=== PATIENT | female | born 1975 | race Hispanic/Latino ===

== ENCOUNTER 2019-01-05 09:07 | Inpatient (IN) | payer MEDICAID, SELFPAY ==
[2019-01-05 09:39] LABS: Bilirubin Negative (Negative); Blood, Urine Small (Negative); Clarity CLEAR (Clear); Glucose, Urine (Dipstick) >=1000 mg/dL (Negative); Leukocyte Negative (Negative); Nitrite Negative (Negative); Protein, Urine (Dipstick) 100 mg/dL (Neg-Trace); Specific Gravity, Urine 1.032 (1.002-1.036); Urobilinogen 0.2 mg/dL (0.2-1.0); pH, Urine 5.5 (5.0-9.0)
[2019-01-05 09:44] LABS: Pregnancy Test - Urine (BHCG) Negative (Negative); Pregu Control Background? CLEAR/WHITE (CLR/WHITE); Pregu Control Bar Appear? YES (CONTROL BAR); Specific Gravity 1.032 (1.002-1.036)
[2019-01-05 09:45] LABS: Bacteria/HPF None Seen HPF (None Seen); RBC/HPF 0-3 HPF (0-3); Squamous Epithelial 0-3 HPF (0-3); WBC/HPF 0-3 HPF (0-3)
[2019-01-05 09:46] LABS: Pathc Cast-AUWi Flag 2.61 (0-2.49)
[2019-01-05 09:57] LABS: Hyaline Casts/LPF 0-3 HYALINE CAST LPF (0-3 Hyaline)
[2019-01-05] MEDS ORDERED: ISOVUE-370 76%-LOCM 1 ML ONE (10:13)
[2019-01-05 10:44] LABS: Hemoglobin 12.9 g/dL (12.0-16.0); Mean Corpuscular Hemoglobin 27.1 pg (27.0-31.0); Mean Corpuscular Volume 87.1 fL (78.0-98.0); Mean Platelet Volume 9.3 fL (7.4-10.4); Platelet Count 286 thou/uL (130-400); RBC Distribution Width 15.9 % (11.5-14.5); Red Blood Cell (RBC) Count 4.75 mill/uL (4.20-5.40); White Blood Cell (WBC) Count 18.8 thou/uL (4.8-10.8)
[2019-01-05 10:59] LABS: Band 18 % (5-11); Lymphocytes 9 % (21-51); MDiff Complete? YES; Monocytes 6 % (0-10); Neutrophil 67 % (42-75); Platelet Morphology Comment Appears Adequate; Polychromasia SLIGHT = 2-3 cells (100X) (0-2/hpf)
[2019-01-05] MEDS ORDERED: Pantoprazole 40 MG VIAL ONE (11:52)
[2019-01-05] MEDS ORDERED: Sodium Chloride 0.9% 0 ML ONE (11:52)
[2019-01-05] MEDS ORDERED: Metoclopramide HCl 10 MG/2 ML VIAL ONE (11:52)
[2019-01-05] MEDS ORDERED: Dicyclomine 20 MG TAB ONE (11:52)
[2019-01-05 12:09] LABS: Albumin 3.5 g/dL (3.5-5.0)
[2019-01-05 12:10] LABS: Chloride 107 mmol/L (98-107); Potassium 4.6 mmol/L (3.5-5.1); Sodium 129 mmol/L (136-145)
[2019-01-05 12:11] LABS: Calcium 9.1 mg/dL (7.8-10.44); Glucose 352 mg/dL (70-105)
[2019-01-05 12:12] LABS: Globulin 4.8 g/dL (2.4-3.5); Protein, Total 8.3 g/dL (6.0-8.3)
[2019-01-05 12:13] LABS: Bilirubin, Total 0.2 mg/dL (0.2-1.2)
[2019-01-05 12:14] LABS: Alkaline Phosphatase 98 U/L (40-150)
[2019-01-05 12:15] LABS: Calc. Creatinine Clearance 0 mL/min (70-130); Estimated GFR-MDRD 59
[2019-01-05 12:16] LABS: BUN (Urea Nitrogen) 9 mg/dL (7.0-18.7)
[2019-01-05 12:17] LABS: ALT (SGPT) Less than 7 U/L (8-55); AST (SGOT) 7 U/L (5-34)
[2019-01-05 12:18] LABS: Lipase 134 U/L (8-78)
[2019-01-05 12:24] LABS: Carbon Dioxide Less than 8 mmol/L (22-29)
--- NOTE | 2019-01-05 13:22 | CT ---
CT ABDOMEN AND PELVIS: 01/05/2019 HISTORY: Abdominal pain and vomiting. COMPARISON: None. TECHNIQUE: Axial CT imaging at 5 mm intervals, from the lung bases through the pubic symphysis, with IV contrast . Coronal reformatted imaging obtained. FINDINGS: The imaged lung base is unremarkable. No free intraperitoneal air is noted. The liver, gallbladder, and spleen appear unremarkable. The adrenal glands and kidneys are unremarka ble. There is mild stranding of the peripancreatic fat, in the region of the pancreatic head and uncinate process, which is slightly ill- defined. In addition, the horizontal portion of the duodenum demonst rates wall thickening. In this location, inseparable from the pancreatic head and the horizontal por tion of the duodenum, there is inflammatory fat stranding and fluid within the retroperitoneum. Flui d extends inferiorly and to the right of midline, into the anterior pararenal space, on the right. This fluid extends into the right lower quadrant. The appendix is unremarkable. No evidence for bowel obstruction. The vascular structures of the abdomen and pelvis appear unremarkable. Review of the osseous structures demonstrates no worrisome lytic or blastic bone lesion. Degenerative changes are seen at the level of the right sacroiliac joint. IMPRESSION: Inflammatory fat stranding and free fluid noted in the region of the horizontal portion of the duoden um/pancreatic head, extending into the right lower quadrant. These findings may be on the basis of d uodenitis, associated with an infectious or inflammatory process, including peptic ulcer disease. Al ternatively, this could be on the basis of pancreatitis involving the pancreatic head and uncinate pr ocess. Results called to Dr. Olivas at 12:40 p.m. on 01/05/2019. CODE CR POS: [facility]
[2019-01-05] MEDS ORDERED: Insulin Regular 300 UNITS/3 ML VIAL ONE (14:09)
[2019-01-05 14:23] LABS: Magnesium 2.3 mg/dL (1.6-2.6)
[2019-01-05 14:28] LABS: Phosphorus 1.9 mg/dL (2.3-4.7)
[2019-01-05] MEDS ORDERED: Sodium Chloride 0.9% 1,000 ML IV PRN ×4 (15:23)
[2019-01-05] MEDS ORDERED: Guaifenesin DM 100-10/5 ML UDCUP PO PRN (15:23)
[2019-01-05] MEDS ORDERED: Ondansetron PF 4 MG/2 ML Vial IVP PRN (15:23)
[2019-01-05] MEDS ORDERED: Dextrose 5 %-0.45 % NaCl 1,000 ML IV PRN (15:23)
[2019-01-05] MEDS ORDERED: NS 0.9% w/ 20 MEQ KCL 1,000 ML IV PRN ×2 (15:23)
[2019-01-05] MEDS ORDERED: CCU Electrolyte Replacement 1 EACH IVPB ONE (15:23)
[2019-01-05] MEDS ORDERED: HUMULIN R 100 UNITS in Sodium Chloride 0.9% 100 ML IVPB SCH (15:30)
[2019-01-05] MEDS ORDERED: Potassium Phosphate 9 MMOL in Sodium Chloride 0.9% 100 ML IVPB PRN (15:44)
[2019-01-05] MEDS ORDERED: Potassium Phosphate 15 MMOL in Sodium Chloride 0.9% 250 ML 250 ML IV PRN (15:44)
[2019-01-05] MEDS ORDERED: Potassium Chloride 40 MEQ in Premix Bag 1 BAG IVPB PRN (15:44)
[2019-01-05] MEDS ORDERED: Magnesium Oxide 400 MG TAB PO PRN ×2 (15:44)
[2019-01-05] MEDS ORDERED: Potassium Chloride 20 MEQ TAB PO PRN (15:44)
[2019-01-05] MEDS ORDERED: Magnesium 2 GM/NS 0.9% 100 ML 2 GM in Premix Bag 1 BAG IVPB PRN (15:44)
[2019-01-05] MEDS ORDERED: Potassium Chloride 40 MEQ in Sodium Chloride 0.9% 250 ML 250 ML IVPB PRN (15:44)
[2019-01-05] MEDS ORDERED: CCU ELECTROLYTE REPLACEMENT PROTOCOL FS PRN (15:44)
[2019-01-05] MEDS ORDERED: Potassium Phosphate 12 MMOL in Sodium Chloride 0.9% 250 ML 250 ML IV PRN (15:44)
[2019-01-05] MEDS ORDERED: Sodium Chloride 0.9% (PF) 10 ML VIAL FS PRN (15:45)
--- NOTE | 2019-01-05 15:57 | HP ---
REASON FOR ADMISSION: DKA, noncompliance with medication. HISTORY OF PRESENTING ILLNESS: The patient gives history of having severe abdominal pain in the epigastric area, which started from Thursday. She had associated nausea, vomiting, and had not been able to keep anything down. She had a hard stool on Thursday. She has not had any further bowel movements from then on. Currently, her abdominal pain is around 1/10 to 2/10. The patient states that she has diabetes diagnosed from last 2 years and has not been taking any medications from last 4 months now. No complaints of urinary frequency or urgency. No complaints of cough or expectoration. No fever at home. No complaints of vaginal discharge. PAST MEDICAL AND SURGICAL HISTORY: Diabetes from last 2 years. No surgical history. CURRENT MEDICATIONS: None. The patient was on glimepiride and metformin before , but has been off these medications from last 4 months. ALLERGIES: NO KNOWN DRUG ALLERGIES. PERSONAL HISTORY: Does not abuse alcohol or drugs. No history of smoking. FAMILY HISTORY: Mother in a motor vehicle accident at the age of 67 years. Father when she was very young, he was alcoholic. CODE STATUS: Full. Power of assistant city attorney is her , Mr. Sanchez. REVIEW OF SYSTEMS: CONSTITUTIONAL: Negative for weight loss or gain, ability to conduct usual activities. SKIN: Negative for rash, itching. EYES: Negative for double vision, pain. ENT/MOUTH: Negative for nose bleeding, neck stiffness, pain, tenderness. CARDIOVASCULAR: Negative for palpitations, dyspnea on exertion, orthopnea. RESPIRATORY: Negative for shortness of breath, wheezing, cough, hemoptysis, fever or night sweats. GASTROINTESTINAL: Negative for poor appetite, abdominal pain, heartburn, nausea , vomiting, constipation, or diarrhea. GENITOURINARY: Negative for urgency, frequency, dysuria, nocturia. MUSCULOSKELETAL: Negative for pain, swelling. NEUROLOGIC/PSYCHIATRIC: Negative for anxiety, depression. ALLERGY/IMMUNOLOGIC: Negative for skin rash, bleeding tendency. PHYSICAL EXAMINATION: GENERAL: The patient is a 43-year-old female, who is currently not in any acute distress. VITAL SIGNS: Blood pressure 100/66, pulse 110 per minute, respiratory rate 18 per minute, temperature 98.1 degrees Fahrenheit, and saturating 99% on room air. NECK: Supple. No elevated JVD. HEENT: Eyes; extraocular muscles intact, pupils reacting to light. Oral cavity ; mucous membranes are dry. No exudates or congestion. CARDIOVASCULAR: S1 and S2 heard. Regular rhythm. RESPIRATORY: Air entry 1+ bilateral. No rales or rhonchi. ABDOMEN: Soft. Bowel sounds heard. No rigidity or guarding. Mild tenderness in the epigastric area. No rebound. EXTREMITIES: No peripheral edema or calf tenderness. VASCULAR: Peripheral pulses 2+ bilateral. No ischemic ulcerations or gangrene. CENTRAL NERVOUS SYSTEM: No gross focal motor deficits noted. The patient is alert, awake, and oriented well. PSYCHIATRIC: No obvious hallucinations or delusions. LABORATORY DATA: Influenza A and B antigens are negative. CT of the abdomen and pelvis with contrast done showed inflammatory fat stranding and free fluid noted in the region of the horizontal portion of the duodenum/pancreatic head extending into the right lower quadrant. These findings could be due to duodenitis versus pancreatitis. Beta-hydroxybutyrate 6.45. Urine test is negative. Lipase is 134, albumin 4.8. CRP 45. AST, ALT, and alkaline phosphatase within normal limits. Total bilirubin is 0.2. Phosphorus is 1.9. Serum osmolality 311. Serum glucose 352, serum bicarb less than 8, BUN 9, creatinine 1.0. White count of 18 , H and H 12 and 41, platelet count is 286, MCV is 87, with 67% neutrophils and 18% bands. CLINICAL IMPRESSION AND PLAN: The patient will be admitted to [facility] for DKA with diabetes mellitus type 2. She also appears to have either peptic ulcer disease with duodenal ulcer versus mild pancreatitis based on the CAT scan finding and epigastric pain clinically. The patient will be on DKA protocol. She is on 6 units of regular insulin at present and will follow the DKA protocol. Gastroenterology consultation with Dr. Camarillo will be requested for the CAT scan findings and clinical epigastric pain. She will be on Protonix 40 mg IV q.12 hourly. The patient has been noncompliant with her medications from last 4 months for her diabetes. We will continue to closely monitor her in [facility]. Job ID: [id number] [facility]
[2019-01-05 16:27] LABS: BUN (Urea Nitrogen) 8 mg/dL (7.0-18.7); Calc. Creatinine Clearance 0 mL/min (70-130); Calcium 7.8 mg/dL (7.8-10.44); Chloride 114 mmol/L (98-107); Estimated GFR-MDRD 81; Glucose 200 mg/dL (70-105); Potassium 3.9 mmol/L (3.5-5.1); Sodium 134 mmol/L (136-145)
[2019-01-05 16:29] LABS: Carbon Dioxide Less than 8 mmol/L (22-29)
[2019-01-05] MEDS ORDERED: Sodium Bicarb 50 MEQ/50 ML Abboject 8.4% SYRINGE ONE (17:14)
[2019-01-05 18:35] VITALS: BMI 24.8
--- NOTE | 2019-01-05 19:37 | ULT ---
GALLBLADDER ULTRASOUND: 01/05/19 INDICATION: Abdominal pain, upper aspect. FINDINGS: Moderate distention of the gallbladder. No gallbladder wall thickening. There is no shadowing cholel ithiasis. Common duct measures 5 mm in diameter. No ascites. No focal hepatic lesion. IMPRESSION: No acute abnormality of the right upper quadrant evident sonographically. POS: [facility]
[2019-01-05 20:03] LABS: BUN (Urea Nitrogen) 7 mg/dL (7.0-18.7); Calc. Creatinine Clearance 81 mL/min (70-130); Calcium 8.1 mg/dL (7.8-10.44); Chloride 114 mmol/L (98-107); Estimated GFR-MDRD 72; Glucose 275 mg/dL (70-105); Potassium 3.7 mmol/L (3.5-5.1); Sodium 133 mmol/L (136-145)
[2019-01-05 20:04] LABS: Carbon Dioxide Less than 8 mmol/L (22-29)
[2019-01-05] MEDS ORDERED: Pantoprazole 40 MG VIAL IVP SCH (21:00)
[2019-01-05] MEDS: D5 1/2 NS w/20 mEq KCL 1,000 ML IV PRN (22:42)
[2019-01-06 01:23] LABS: Anion Gap 10 mmol/L (10-20); BUN (Urea Nitrogen) 5 mg/dL (7.0-18.7); Calc. Creatinine Clearance 92 mL/min (70-130); Calcium 7.8 mg/dL (7.8-10.44); Carbon Dioxide 11 mmol/L (22-29); Chloride 114 mmol/L (98-107); Estimated GFR-MDRD 84; Glucose 239 mg/dL (70-105); Potassium 3.1 mmol/L (3.5-5.1); Sodium 132 mmol/L (136-145)
--- NOTE | 2019-01-06 01:30 | CON ---
DATE OF CONSULTATION: 01/05/2019 REASON FOR CONSULTATION: Abdominal pain. HISTORY OF PRESENT ILLNESS: Ms. Ayala is a 43-year-old female, who was brought into the ER by her daughters with the above complaint. For the last 4 days, she has had diffuse abdominal pain more so on the upper abdomen that has progressively worsened over the last 2 days. She did have nausea and vomiting. There is no fever or chills. The patient has not had any diarrhea. There is no visible bleeding in the stools. The patient denies having had any previous gastrointestinal issue. She does have history of adult onset diabetes, but has been without medication for the last several months. She was noted to be in DKA by blood tests in the ER. PAST MEDICAL HISTORY: 1. Adult onset diabetes. 2. No medical illness. PAST SURGICAL HISTORY: No previous surgery. MEDICATIONS: At home, none. ALLERGIES: NONE. SOCIAL HISTORY: The patient lives with her . No tobacco or alcohol usage. FAMILY HISTORY: Negative for any known GI problem, liver disease, or GI malignancy. REVIEW OF SYSTEMS: Obtained per the daughter, interpreting. Ten-point review of systems did not show any pertinent positives or negatives. PHYSICAL EXAMINATION: VITAL SIGNS: Temperature is 98.8, blood pressure 108/70, pulse of 90. GENERAL: She is alert, sitting up by bedside in apparent pain, but no distress. HEENT: Shows anicteric sclerae. Oropharynx clear. NECK: Supple. CV: Shows normal S1, S2. Regular rate and rhythm. CHEST: Shows breath sounds. ABDOMEN: Soft. There is no distention. No tympany. She has active bowel sounds. There is [id number] diffuse tenderness. No guarding or rebound. She has active bowel sounds. EXTREMITIES: Shows no edema. LABORATORY DATA: WBC is 18.8, hemoglobin 12.9, and platelet count of 286. Sodium 134, potassium 3.9, chloride 114, CO2 less than 8, glucose 352. Serum osmolality 311, bilirubin 0.2, AST of 7, ALT of less than 7, alkaline phosphatase 98, lipase of 134, beta hydroxybutyrate 6.45. Abdominal pelvic CT with contrast showed fat stranding in the pancreatic head area and duodenum with inflammation of fluid extending down into the right side. Also duodenal wall thickening. Pancreas appears viable. ASSESSMENT: 1. Abdominal pain in the setting of leukocytosis in CT and findings most likely suggestive of pancreatitis. I think duodenitis or duodenal ulcer appears to be much less likely given the CT findings. Pancreatitis could be precipitated by her diabetic ketoacidosis as the patient does not have any alcohol consumption and she is not on any other medication. Cholelithiasis needs to be excluded. 2. Adult onset diabetes without medication for the last several months, now in diabetic ketoacidosis. RECOMMENDATIONS: 1. Treat her diabetic ketoacidosis. 2. Clear liquids if tolerated. 3. No need for antibiotics at the present time. 4. Diagnostic upper endoscopy tomorrow or once her diabetic ketoacidosis resolves to rule out any duodenal pathology. 5. Gallbladder ultrasound. 6. Monitor her labs and clinical status. We will follow. Job ID: [id number] [facility]
[2019-01-06] MEDS: D5 1/2 NS w/20 mEq KCL 1,000 ML IV PRN ×2 (02:48→06:01)
[2019-01-06 06:50] LABS: Anion Gap 12 mmol/L (10-20); BUN (Urea Nitrogen) 4 mg/dL (7.0-18.7); Calc. Creatinine Clearance 115 mL/min (70-130); Calcium 7.6 mg/dL (7.8-10.44); Chloride 114 mmol/L (98-107); Estimated GFR-MDRD Greater than 90; Glucose 211 mg/dL (70-105); Lipase 63 U/L (8-78); Potassium 3.2 mmol/L (3.5-5.1); Sodium 131 mmol/L (136-145)
[2019-01-06 06:53] LABS: Carbon Dioxide 8 mmol/L (22-29)
[2019-01-06 07:10] LABS: #Eosinphils 0.1 thou/uL (0.0-0.7); #Lymphocytes 1.6 thou/uL (1.20-3.40); #Monocytes 0.9 thou/uL (0.11-0.59); #Neutrophils 10.8 thou/uL (1.40-6.50); %Basophils 0.1 % (0.0-1.0); %Eosinophils 0.6 % (0.0-10.0); %Lymphocytes 11.8 % (21.0-51.0); %Monocytes 6.8 % (0.0-10.0); %Neutrophils 80.7 % (42.0-75.0); Hemoglobin 9.7 g/dL (12.0-16.0); Mean Corpuscular HGB CONC 31.8 g/dL (32.0-36.0); Mean Platelet Volume 8.3 fL (7.4-10.4); Platelet Count 215 thou/uL (130-400); RBC Distribution Width 15.6 % (11.5-14.5); White Blood Cell (WBC) Count 13.4 thou/uL (4.8-10.8)
--- NOTE | 2019-01-06 08:37 | RAD ---
ACUTE ABDOMINAL SERIES: Date: 01/06/19 INDICATION: Metabolic acidosis. FINDINGS: Lungs are clear. No free air beneath the hemidiaphragms. Bowel gas pattern is nonobstructed. The osse ous structures are intact. IMPRESSION: 1. Clear lungs. 2. No free air. 3. No bowel obstruction evident. POS: [facility]
[2019-01-06] MEDS: Pantoprazole 40 MG VIAL IVP SCH (09:53)
--- NOTE | 2019-01-06 11:17 | PDOC.PN ---
- Subjective Encounter Start Date: 01/06/19 Encounter Start Time: 08:30 Subjective: no nausea, still has epigastric pain -: at bedside - Objective Resuscitation Status - Order Detail: 01/05/19 15:21 Resuscitation Status Routine Resuscitation Status: FULL: Full Resuscitation MAR Reviewed: Yes Vital Signs & Weight: Vital Signs (12 hours) Temp Pulse Ox 01/06/19 07:16 99.2 F 01/06/19 04:00 98.2 F 01/06/19 00:00 98.9 F 100 Weight Weight 135 lb 12.8 oz Most Recent Monitor Data Heart Rate from ECG 89 NIBP 111/67 NIBP BP-Mean 81 Respiration from ECG 22 I&O: 01/05/19 01/06/19 01/07/19 06:59 06:59 06:59 Intake Total 3350 1000 Output Total 800 1350 Balance 2550 -350 Result Diagrams: 01/06/19 05:32 01/06/19 05:32 Additional Labs: Accuchecks 01/06/19 01/06/19 01/06/19 11:09 10:16 09:04 POC Glucose 158 H 183 H 237 H 01/06/19 01/06/19 01/06/19 08:10 07:06 06:03 POC Glucose 199 H 220 H 207 H 01/06/19 01/06/19 01/06/19 05:01 04:03 03:01 POC Glucose 208 H 214 H 223 H 01/06/19 01/06/19 01/06/19 02:02 00:58 00:01 POC Glucose 237 H 217 H 222 H 01/05/19 01/05/19 01/05/19 23:01 22:05 21:01 POC Glucose 255 H 281 H 275 H 01/05/19 01/05/19 01/05/19 19:58 19:07 18:18 POC Glucose 251 H 213 H 211 H 01/05/19 01/05/19 01/05/19 17:10 16:00 14:07 POC Glucose 188 H 194 H 302 H 01/05/19 09:17 POC Glucose 329 H Phys Exam - Physical Examination HEENT: PERRLA, moist MMs Neck: no JVD, supple Respiratory: no wheezing, no rales Cardiovascular: RRR, no significant murmur Gastrointestinal: soft, no distention, positive bowel sounds epigastric tenderness, no rebound or guarding Musculoskeletal: no edema, pulses present Neurological: non-focal, moves all 4 limbs Psychiatric: normal affect, A&O x 3 Dx/Plan (1) DKA (diabetic ketoacidoses) Code(s): E13.10 - OTH DIABETES MELLITUS WITH KETOACIDOSIS WITHOUT COMA Status : Resolved Qualifiers: Diabetes mellitus type: type 2 Diabetes mellitus complication detail: without coma Qualified Code(s): E11.10 - Type 2 diabetes mellitus with ketoacidosis without coma (2) Metabolic acidosis Code(s): E87.2 - ACIDOSIS Status: Acute Comment: severe (3) Abdominal pain Code(s): R10.9 - UNSPECIFIED ABDOMINAL PAIN Status: Acute Qualifiers: Abdominal location: epigastric Qualified Code(s): R10.13 - Epigastric pain (4) Anemia Code(s): D64.9 - ANEMIA, UNSPECIFIED Status: Acute Qualifiers: Anemia type: unspecified type Qualified Code(s): D64.9 - Anemia, unspecified (5) Nausea & vomiting Code(s): R11.2 - NAUSEA WITH VOMITING, UNSPECIFIED Status: Resolved (6) HTN (hypertension) Code(s): I10 - ESSENTIAL (PRIMARY) HYPERTENSION Status: Chronic Qualifiers: Hypertension type: essential hypertension Qualified Code(s): I10 - Essential (primary) hypertension (7) Dyslipidemia Code(s): E78.5 - HYPERLIPIDEMIA, UNSPECIFIED Status: Chronic - Plan await EGD results -: dka is corrected with betahydroxy levels being normal -: has severe met acidosis likely from pancreatitis?, no perf on plain xray -: keep pt npo until egd and is cleared by GI for eating -: iv hydration, dc iv insulin and start levemir 10u bid * . Review of Systems - Medications/Allergies Allergies/Adverse Reactions: Allergies Allergy/AdvReac Type Severity Reaction Status Date / Time No Known Allergies Allergy Unverified 01/05/19 15:40 Medications: Current Medications Acetaminophen (Tylenol) 650 mg PO Q4H PRN PRN Reason: Headache/Fever/Mild Pain (1-3) Enoxaparin Sodium (Lovenox) 40 mg SC 0900 JUSTO Guaifenesin/Dextromethorphan (Robitussin Dm) 15 ml PO Q4H PRN PRN Reason: Cough Dextrose/Sodium Chloride (D5 1/2 Ns) 1,000 mls @ 250 mls/hr IV .Q4H PRN; Protocol PRN Reason: Step 4 of DKA Protocol Potassium Chloride/Dextrose/Sod Cl (D5 1/2 Ns W/20 Meq Kcl) 1,000 mls @ 250 mls /hr IV .Q4H PRN; Protocol PRN Reason: Step 4 of DKA Protocol Last Admin: 01/06/19 06:01 Dose: 1,000 mls Insulin Human Regular 100 (units/ Sodium Chloride) 101 mls @ 0 mls/hr IVPB INF JUSTO; Protocol Last Admin: 01/06/19 06:01 Dose: 101 mls Sodium Chloride (Normal Saline 0.9%) 1,000 mls @ 500 mls/hr IV .Q2H PRN; Protocol PRN Reason: Step 1 of DKA Protocol Sodium Chloride (Normal Saline 0.9%) 1,000 mls @ 1,000 mls/hr IV .Q1H PRN; Protocol PRN Reason: Step 1 of DKA Protocol Sodium Chloride (Normal Saline 0.9%) 1,000 mls @ 250 mls/hr IV .Q4H PRN; Protocol PRN Reason: SEE STEP 3 OF DKA PROTOCOL Sodium Chloride (Normal Saline 0.9%) 1,000 mls @ 500 mls/hr IV .Q2H PRN; Protocol PRN Reason: Step 2 of DKA Protocol Potassium Chloride/Sodium Chloride (Ns 0.9% W/ 20 Meq Kcl) 1,000 mls @ 500 mls/ hr IV .Q2H PRN; Protocol PRN Reason: Step 2 of DKA Protocol Potassium Chloride/Sodium Chloride (Ns 0.9% W/ 20 Meq Kcl) 1,000 mls @ 250 mls/ hr IV .Q4H PRN; Protocol PRN Reason: SEE STEP 3 OF DKA PROTOCOL Potassium Chloride 40 meq/ (Sodium Chloride) 270 mls @ 135 mls/hr IVPB ASDIR PRN PRN Reason: FOR SERUM K+ 2.5 - 3.5 Potassium Chloride 40 meq/ (Device) 100 mls @ 50 mls/hr IVPB ASDIR PRN PRN Reason: FOR SERUM K+ 2.5 - 3.5 Magnesium Sulfate 1 gm/ Sodium (Chloride) 102 mls @ 102 mls/hr IV PRN PRN PRN Reason: MAG LEVEL 1.4 - 2.0 Magnesium Sulfate 2 gm/ Device 100 mls @ 100 mls/hr IVPB ASDIR PRN PRN Reason: MAGNESIUM < 1.4 Potassium Phosphate 9 mmol/ (Sodium Chloride) 103 mls @ 25.75 mls/hr IVPB ASDIR PRN PRN Reason: Phosphate 1.0-1.8 Potassium Phosphate 12 mmol/ (Sodium Chloride) 254 mls @ 63.5 mls/hr IV ASDIR PRN PRN Reason: Serum phosphate 0.5-0.9 Potassium Phosphate 15 mmol/ (Sodium Chloride) 255 mls @ 63.75 mls/hr IV ASDIR PRN PRN Reason: Serum Phos < 0.5 Magnesium Oxide (Magnesium Oxide) 400 mg PO BIDPRN PRN PRN Reason: FOR SERUM MAG 1.4 - 2.0 Magnesium Oxide (Magnesium Oxide) 800 mg PO PRN PRN PRN Reason: FOR SERUM MAG < 1.4 Miscellaneous Medication (Phos-Nak) 1 pkt PO TIDPRN PRN PRN Reason: FOR PHOS LEVEL 1.0 - 1.8 Miscellaneous Medication (Phos-Nak) 2 pkt PO TIDPRN PRN PRN Reason: FOR PHOS LEVEL 0.5 - 1.0 Ccu Electrolyte (Replacement Protocol) 0 each FS PRN PRN PRN Reason: FOR ELECTROLYTE REPLACEMENT Ondansetron HCl (Zofran) 4 mg IVP Q6H PRN PRN Reason: Nausea/Vomiting Pantoprazole Sodium (Protonix) 40 mg IVP DAILY JUSTO Last Admin: 01/06/19 09:53 Dose: 40 mg Potassium Chloride (K-Dur) 40 meq PO ASDIR PRN PRN Reason: FOR SERUM K+ 2.5 - 3.5 Potassium Chloride (Klor-Con) 40 meq PER TUBE ASDIR PRN PRN Reason: FOR SERUM K+ 2.5-3.5 Sodium Chloride (Normal Saline Pf) 10 ml FS PRN PRN PRN Reason: RECONSTITUTION
[2019-01-06] MEDS: Enoxaparin Sodium 40 MG/0.4 ML SYRINGE SC SCH (14:04)
--- NOTE | 2019-01-06 15:00 | PRG ---
DATE OF SERVICE: 01/06/2019 SUBJECTIVE: The patient reports subjectively feeling better. Her current abdominal pain is rated at 3/10. There is no nausea or vomiting. No acute overnight event noted. PHYSICAL EXAMINATION: VITAL SIGNS: Temperature is 99.4, blood pressure 97/58, pulse of 85. GENERAL: She is alert, quiet, in no distress. HEENT: Shows anicteric sclerae. NECK: Supple. CV: Shows normal S1 and S2. Regular rate and rhythm. CHEST: Shows breath sounds. ABDOMEN: Soft. No distention. Mild epigastric tenderness. No guarding or rebound. She has active bowel sounds. EXTREMITIES: Shows no edema. LABORATORY DATA: WBCs 13.4, hemoglobin 9.7, and platelet count of 215. Sodium 131, potassium 3.2, chloride 114, CO2 of 8, lipase of 63. Right upper quadrant ultrasound was normal, no gallstone. ASSESSMENT: 1. Severe epigastric pain with CT findings suggestive of pancreatitis as the most likely etiology rather than duodenal pathology. Clinically stable and subjectively improving. Her labs are fairly unremarkable. 2. Diabetic ketoacidosis, resolving. RECOMMENDATIONS: 1. Continue clear liquids today. 2. Diagnostic upper endoscopy in a.m. 3. Further recommendation to follow per clinical course and endoscopic finding. Job ID: [id number]
[2019-01-06] MEDS ORDERED: Dextrose 50% Abboject 50 ML SYRINGE SLOW IVP PRN (15:42)
[2019-01-06] MEDS ORDERED: Dextrose 5% in Water 1,000 ML IV PRN (15:42)
[2019-01-06] MEDS ORDERED: CCU Electrolyte Replacement 1 EACH FS ONE (15:43)
[2019-01-06] MEDS ORDERED: CCU ELECTROLYTE REPLACEMENT PROTOCOL FS PRN (15:46)
[2019-01-06] MEDS ORDERED: Magnesium 2 GM/NS 0.9% 100 ML 2 GM in Premix Bag 1 BAG IVPB PRN (15:46)
[2019-01-06] MEDS ORDERED: Potassium Phosphate 9 MMOL in Sodium Chloride 0.9% 100 ML IVPB PRN (15:46)
[2019-01-06] MEDS ORDERED: Potassium Phosphate 15 MMOL in Sodium Chloride 0.9% 250 ML 250 ML IV PRN (15:46)
[2019-01-06] MEDS ORDERED: Potassium Chloride 40 MEQ in Premix Bag 1 BAG IVPB PRN (15:46)
[2019-01-06] MEDS ORDERED: Potassium Chloride 20 MEQ TAB PO PRN (15:46)
[2019-01-06] MEDS ORDERED: Potassium Chloride 40 MEQ in Sodium Chloride 0.9% 250 ML 250 ML IVPB PRN (15:46)
[2019-01-06] MEDS ORDERED: Magnesium Oxide 400 MG TAB PO PRN ×2 (15:46)
[2019-01-06 16:50] LABS: Anion Gap 11 mmol/L (10-20); BUN (Urea Nitrogen) Less than 4 mg/dL (7.0-18.7); Calc. Creatinine Clearance 123 mL/min (70-130); Calcium 7.8 mg/dL (7.8-10.44); Carbon Dioxide 11 mmol/L (22-29); Chloride 115 mmol/L (98-107); Estimated GFR-MDRD Greater than 90; Glucose 160 mg/dL (70-105); Magnesium 1.4 mg/dL (1.6-2.6); Phosphorus Less than 1.0 mg/dL (2.3-4.7); Potassium 2.8 mmol/L (3.5-5.1); Sodium 134 mmol/L (136-145)
[2019-01-06] MEDS ORDERED: Magnesium 2 GM/50 ML 2 GM in Premix Bag 1 BAG IVPB SCH (17:15)
[2019-01-06] MEDS: Potassium Phosphate 12 MMOL in Sodium Chloride 0.9% 250 ML 250 ML IV PRN (17:23)
[2019-01-06] MEDS: Insulin Glargine 12 UNITS in Pre-Filled Syringe 1 EACH SC SCH (20:46)
[2019-01-06] MEDS: HumaLOG 300 UNITS/3 ML VIAL SC PRN (20:47)
[2019-01-07] MEDS: Potassium Phosphate 12 MMOL in Sodium Chloride 0.9% 250 ML 250 ML IV PRN (01:06)
[2019-01-07 05:17] LABS: Anion Gap 11 mmol/L (10-20); BUN (Urea Nitrogen) 4 mg/dL (7.0-18.7); Calc. Creatinine Clearance 117 mL/min (70-130); Carbon Dioxide 14 mmol/L (22-29); Chloride 112 mmol/L (98-107); Estimated GFR-MDRD Greater than 90; Glucose 253 mg/dL (70-105); Sodium 133 mmol/L (136-145)
[2019-01-07] MEDS: HumaLOG 300 UNITS/3 ML VIAL SC PRN ×4 (06:19→21:19)
[2019-01-07] MEDS: Insulin Glargine 12 UNITS in Pre-Filled Syringe 1 EACH SC SCH ×2 (08:24→21:17)
[2019-01-07] MEDS: Pantoprazole 40 MG VIAL IVP SCH (08:25)
[2019-01-07] MEDS: Enoxaparin Sodium 40 MG/0.4 ML SYRINGE SC SCH (10:01)
--- NOTE | 2019-01-07 15:13 | PRG ---
DATE OF SERVICE: 01/07/2019 SUBJECTIVE: The patient reports the pain is about the same as yesterday, but overall better since admission, currently 3/10. She has no nausea or vomiting. She was able to ambulate in the hallway. No other reported symptoms. PHYSICAL EXAMINATION: VITAL SIGNS: Temperature is 98.2, blood pressure 107/59, pulse of 83. GENERAL: She is alert, quiet, in no distress. HEENT: Shows anicteric sclerae. NECK: Supple. CV: Shows normal S1, S2. Regular rate and rhythm. CHEST: Shows breath sounds. ABDOMEN: Shows [id number] tenderness in the medial right upper quadrant, down the right quadrant and right abdomen. No guarding or rebound. She has active bowel sounds. No distention. No tympany. EXTREMITIES: Show no edema. LABORATORY DATA: Sodium 133, potassium 4.0, chloride 112, CO2 of 14, creatinine 0.59. ASSESSMENT: 1. Severe epigastric pain on admission with CT findings suggestive of pancreatitis as the most likely etiology. Her acidosis is improving. The patient clinically does not look toxic. She is without fever and leukocytosis is also improving. 2. Diabetic ketoacidosis, resolved. RECOMMENDATIONS: 1. Continue with clear liquids. 2. We will defer diagnostic upper endoscopy to a.m. 3. if EGD is negative and she continues to have pain, then we will repeat CT scan to assess for any interval pain. 4. Dr. Berrios will cover for GI Services this weekend. Job ID: [id number] [facility]
--- NOTE | 2019-01-07 15:25 | PDOC.PN ---
- Subjective Encounter Start Date: 01/07/19 Encounter Start Time: 13:00 Subjective: abd pain is better but still present -: is tolerating oral diet, no nausea - Objective Resuscitation Status - Order Detail: 01/05/19 15:21 Resuscitation Status Routine Resuscitation Status: FULL: Full Resuscitation MAR Reviewed: Yes Vital Signs & Weight: Vital Signs (12 hours) Temp Pulse Ox 01/07/19 12:00 98.2 F 01/07/19 08:00 98.8 F 100 01/07/19 03:44 98.7 F Weight Weight 135 lb 12.8 oz Most Recent Monitor Data Heart Rate from ECG 83 NIBP 107/59 NIBP BP-Mean 75 Respiration from ECG 16 I&O: 01/06/19 01/07/19 01/08/19 06:59 06:59 06:59 Intake Total 3350 3400 Output Total 800 5100 Balance 2550 -1700 Result Diagrams: 01/06/19 05:32 01/07/19 04:46 Additional Labs: Accuchecks 01/07/19 01/07/19 10:16 05:58 POC Glucose 183 H 250 H Phys Exam - Physical Examination HEENT: PERRLA, moist MMs Neck: no JVD, supple Respiratory: no wheezing, no rales Cardiovascular: RRR, no significant murmur Gastrointestinal: soft, no distention, positive bowel sounds no rigidity or guarding Musculoskeletal: no edema, pulses present Neurological: non-focal, moves all 4 limbs Psychiatric: normal affect, A&O x 3 Dx/Plan (1) DKA (diabetic ketoacidoses) Code(s): E13.10 - OTH DIABETES MELLITUS WITH KETOACIDOSIS WITHOUT COMA Status : Resolved Qualifiers: Diabetes mellitus type: type 2 Diabetes mellitus complication detail: without coma Qualified Code(s): E11.10 - Type 2 diabetes mellitus with ketoacidosis without coma (2) Metabolic acidosis Code(s): E87.2 - ACIDOSIS Status: Acute Comment: severe (3) Abdominal pain Code(s): R10.9 - UNSPECIFIED ABDOMINAL PAIN Status: Acute Qualifiers: Abdominal location: epigastric Qualified Code(s): R10.13 - Epigastric pain (4) Anemia Code(s): D64.9 - ANEMIA, UNSPECIFIED Status: Acute Qualifiers: Anemia type: unspecified type Qualified Code(s): D64.9 - Anemia, unspecified (5) Nausea & vomiting Code(s): R11.2 - NAUSEA WITH VOMITING, UNSPECIFIED Status: Resolved (6) HTN (hypertension) Code(s): I10 - ESSENTIAL (PRIMARY) HYPERTENSION Status: Chronic Qualifiers: Hypertension type: essential hypertension Qualified Code(s): I10 - Essential (primary) hypertension (7) Dyslipidemia Code(s): E78.5 - HYPERLIPIDEMIA, UNSPECIFIED Status: Chronic - Plan suspected pancreatitis, electrolytes and acidosis is slowly getting better -: continue iv hydration at 100mls/hr, bmp this evening -: egd in am, lantus 12 u bid -: march tx to medical floor -: d/w and patient at bedside * . Review of Systems - Medications/Allergies Allergies/Adverse Reactions: Allergies Allergy/AdvReac Type Severity Reaction Status Date / Time No Known Allergies Allergy Unverified 01/05/19 15:40 Medications: Current Medications Acetaminophen (Tylenol) 650 mg PO Q4H PRN PRN Reason: Headache/Fever/Mild Pain (1-3) Dextrose/Water (Dextrose 50%) 25 gm SLOW IVP PRN PRN PRN Reason: Hypoglycemia Enoxaparin Sodium (Lovenox) 40 mg SC 0900 [facility] Last Admin: 01/07/19 10:01 Dose: Not Given Glucagon (Glucagon) 1 mg IM PRN PRN PRN Reason: Hypoglycemia Guaifenesin/Dextromethorphan (Robitussin Dm) 15 ml PO Q4H PRN PRN Reason: Cough Dextrose/Water (D5w) 1,000 mls @ 0 mls/hr IV .Q0M PRN PRN Reason: Hypoglycemia Insulin Glargine 12 units/ (Miscellaneous Medication) 0.12 mls @ 0 mls/hr SC BID [facility] Last Admin: 01/07/19 08:24 Dose: 0.12 mls Potassium Chloride 40 meq/ (Sodium Chloride) 270 mls @ 135 mls/hr IVPB ASDIR PRN PRN Reason: FOR SERUM K+ 2.5 - 3.5 Potassium Chloride 40 meq/ (Device) 100 mls @ 50 mls/hr IVPB ASDIR PRN PRN Reason: FOR SERUM K+ 2.5 - 3.5 Magnesium Sulfate 1 gm/ Sodium (Chloride) 102 mls @ 102 mls/hr IV PRN PRN PRN Reason: MAG LEVEL 1.4 - 2.0 Potassium Phosphate 9 mmol/ (Sodium Chloride) 103 mls @ 25.75 mls/hr IVPB ASDIR PRN PRN Reason: Phosphate 1.0-1.8 Potassium Phosphate 12 mmol/ (Sodium Chloride) 254 mls @ 63.5 mls/hr IV ASDIR PRN PRN Reason: Serum phosphate 0.5-0.9 Last Admin: 01/07/19 01:06 Dose: 254 mls Potassium Phosphate 15 mmol/ (Sodium Chloride) 255 mls @ 63.75 mls/hr IV ASDIR PRN PRN Reason: Serum Phos < 0.5 Magnesium Sulfate 2 gm/ Device 50 mls @ 50 mls/hr IVPB ASDIR [facility] Last Admin: 01/06/19 17:16 Dose: 50 mls Insulin Human Lispro (Humalog) 0 units SC .MODERATE SLIDING SC PRN PRN Reason: Moderate Correctional Scale Last Admin: 01/07/19 10:23 Dose: 2 unit Insulin Human Lispro (Humalog) 0 units SC .BEDTIME SLIDING SC PRN PRN Reason: Bedtime Correctional Scale Last Admin: 01/06/19 20:47 Dose: 3 unit Magnesium Oxide (Magnesium Oxide) 400 mg PO BIDPRN PRN PRN Reason: FOR SERUM MAG 1.4 - 2.0 Magnesium Oxide (Magnesium Oxide) 800 mg PO PRN PRN PRN Reason: FOR SERUM MAG < 1.4 Miscellaneous Medication (Phos-Nak) 1 pkt PO TIDPRN PRN PRN Reason: FOR PHOS LEVEL 1.0 - 1.8 Miscellaneous Medication (Phos-Nak) 2 pkt PO TIDPRN PRN PRN Reason: FOR PHOS LEVEL 0.5 - 1.0 Ccu Electrolyte (Replacement Protocol) 0 each FS PRN PRN PRN Reason: FOR ELECTROLYTE REPLACEMENT Ccu Electrolyte (Replacement Protocol) 0 each FS PRN PRN PRN Reason: FOR ELECTROLYTE REPLACEMENT Ondansetron HCl (Zofran) 4 mg IVP Q6H PRN PRN Reason: Nausea/Vomiting Pantoprazole Sodium (Protonix) 40 mg IVP DAILY [facility] Last Admin: 01/07/19 08:25 Dose: 40 mg Potassium Chloride (K-Dur) 40 meq PO ASDIR PRN PRN Reason: FOR SERUM K+ 2.5 - 3.5 Potassium Chloride (Klor-Con) 40 meq PER TUBE ASDIR PRN PRN Reason: FOR SERUM K+ 2.5-3.5
[2019-01-07] MEDS: Sodium Chloride 0.9% 1,000 ML IV SCH (16:13)
[2019-01-07 16:27] LABS: Anion Gap 15 mmol/L (10-20); BUN (Urea Nitrogen) 6 mg/dL (7.0-18.7); Calc. Creatinine Clearance 106 mL/min (70-130); Calcium 8.3 mg/dL (7.8-10.44); Carbon Dioxide 14 mmol/L (22-29); Chloride 109 mmol/L (98-107); Estimated GFR-MDRD Greater than 90; Glucose 238 mg/dL (70-105); Magnesium 1.8 mg/dL (1.6-2.6); Potassium 3.4 mmol/L (3.5-5.1); Sodium 135 mmol/L (136-145)
[2019-01-07 16:36] LABS: Phosphorus 2.2 mg/dL (2.3-4.7)
[2019-01-07] MEDS ORDERED: Potassium Chloride 20 MEQ TAB PO SCH (20:45)
[2019-01-08] MEDS: Sodium Chloride 0.9% 1,000 ML IV SCH (02:01)
[2019-01-08 04:47] LABS: #Basophils 0.1 thou/uL (0.0-0.2); #Eosinphils 0.1 thou/uL (0.0-0.7); #Lymphocytes 2.2 thou/uL (1.20-3.40); #Monocytes 0.8 thou/uL (0.11-0.59); #Neutrophils 6.1 thou/uL (1.40-6.50); %Basophils 0.7 % (0.0-1.0); %Eosinophils 0.6 % (0.0-10.0); %Lymphocytes 23.9 % (21.0-51.0); %Monocytes 9.1 % (0.0-10.0); %Neutrophils 65.6 % (42.0-75.0); Mean Corpuscular HGB CONC 32.8 g/dL (32.0-36.0); Mean Corpuscular Hemoglobin 27.2 pg (27.0-31.0); Mean Platelet Volume 7.9 fL (7.4-10.4); Platelet Count 225 thou/uL (130-400); RBC Distribution Width 15.4 % (11.5-14.5); Red Blood Cell (RBC) Count 3.67 mill/uL (4.20-5.40); White Blood Cell (WBC) Count 9.3 thou/uL (4.8-10.8)
[2019-01-08 05:09] LABS: Anion Gap 11 mmol/L (10-20); BUN (Urea Nitrogen) 5 mg/dL (7.0-18.7); Calc. Creatinine Clearance 123 mL/min (70-130); Calcium 7.9 mg/dL (7.8-10.44); Carbon Dioxide 15 mmol/L (22-29); Chloride 110 mmol/L (98-107); Estimated GFR-MDRD Greater than 90; Glucose 194 mg/dL (70-105); Lipase 60 U/L (8-78); Potassium 3.7 mmol/L (3.5-5.1); Sodium 132 mmol/L (136-145)
[2019-01-08] MEDS: Pantoprazole 40 MG VIAL IVP SCH (09:02)
[2019-01-08] MEDS ORDERED: Sodium Bicarbonate 150 MEQ in Dextrose 5% in Water 1,000 ML IV SCH (09:30)
[2019-01-08] MEDS: Enoxaparin Sodium 40 MG/0.4 ML SYRINGE SC SCH (10:01)
[2019-01-08] MEDS: Potassium Chloride 20 MEQ TAB PO SCH ×2 (10:01→17:00)
[2019-01-08] MEDS: Magnesium Oxide 400 MG TAB PO SCH (10:01)
[2019-01-08] MEDS: Insulin Glargine 12 UNITS in Pre-Filled Syringe 1 EACH SC SCH ×2 (10:02→20:42)
[2019-01-08 10:21] LABS: Actual Bicarbonate (HCO3a) 14.5 mEq/L (22-28); Base Excess (BEa) -8.4 mEq/L (-2.0 to +3.0); Calcium, Ionized 1.14 mmol/L (1.12-1.30); Carboxyhemoglobin (COHb) 0.1 gm% (0.0-3.0); Hemoglobin (Hb) 10.6 g/dL (12.0-16.0); O2 Tension (PaO2) 106.3 mmHg (80.0-100.0); Potassium - ABG Lab 3.67 mmol/L (3.70-5.30); pH, Arterial 7.42 (7.35-7.45)
[2019-01-08 10:23] LABS: ALV-art Gradient 14.805 (0-20); CO2 Tension 22.9 mmHg (35.0-45.0); Puncture Site RR
--- NOTE | 2019-01-08 11:38 | CON ---
DATE OF CONSULTATION: 01/08/2019 CONSULTING PHYSICIAN: Dr. Jenkins. REASON FOR CONSULTATION: Acidosis. REASON FOR ADMISSION: Severe abdominal pain, nausea, and vomiting. HISTORY OF PRESENT ILLNESS: This is a 43-year-old female with a history of type 2 diabetes, who came to the hospital with above complaints and was found to have severe acidosis with bicarb level less than 8, and she was started on IV fluids, now with much improvement. Nephrology consult to rule out any renal cause of acidosis. The patient denies any symptoms. She had 2 episodes of diarrhea in the hospital. Her nausea is better. PAST MEDICAL HISTORY: Positive for diabetes. PAST SURGICAL HISTORY: None. HOME MEDICATIONS: 1. Glimepiride. 2. Metformin. ALLERGIES: NO KNOWN DRUG ALLERGIES. SOCIAL HISTORY: No smoking, alcohol, or illicit drug abuse. FAMILY HISTORY: No history of any kidney disease. REVIEW OF SYSTEMS: CONSTITUTIONAL: Negative for weight loss or gain, ability to conduct usual activities. SKIN: Negative for rash, itching. EYES: Negative for double vision, pain. ENT/MOUTH: Negative for nose bleeding, neck stiffness, pain, tenderness. CARDIOVASCULAR: Negative for palpitations, dyspnea on exertion, orthopnea. RESPIRATORY: Negative for shortness of breath, wheezing, cough, hemoptysis, fever or night sweats. GASTROINTESTINAL: Negative for poor appetite, abdominal pain, heartburn, nausea, vomiting, constipation, or diarrhea. GENITOURINARY: Negative for urgency, frequency, dysuria, nocturia. MUSCULOSKELETAL: Negative for pain, swelling. NEUROLOGIC/PSYCHIATRIC: Negative for anxiety, depression. ALLERGY/IMMUNOLOGIC: Negative for skin rash, bleeding tendency. PHYSICAL EXAMINATION: GENERAL: This is a well-built female, in no apparent distress. VITAL SIGNS: Temperature 98.4. Heart rate 80. Respiratory rate 16. Blood pressure 101/65. HEENT: Atraumatic and normocephalic. Oral mucosa is moist. NECK: Supple. CVS: S1 and S2 heard. Regular rate and rhythm. RESPIRATORY: Clear. MUSCULOSKELETAL: 1+ edema. DERMATOLOGIC: No skin rash. NEUROLOGIC: Alert and awake. PSYCHIATRIC: Normal mood and affect. LABORATORY DATA: Hemoglobin is 10.0. Potassium is 3.7, BUN is 5, creatinine is 0.5. ASSESSMENT AND PLAN: 1. Metabolic acidosis. We will check ABG. We will also check urine anion gap, rule out renal cause. Most likely non-renal cause from the pancreas. 2. Hyponatremia. 3. Hyperchloremia. 4. Hyperglycemia with type 2 diabetes. 5. Nausea and vomiting, better. 6. Edema, controlled. 7. Hypertension, stable. Plan is to check ABG and urine anion gap. We will start her on bicarb drip. We will stop normal saline, and we will continue to monitor. Thank you for the consult. Job ID: [id number]
--- NOTE | 2019-01-08 13:10 | PDOC.PN ---
- Subjective Encounter Start Date: 01/08/19 Encounter Start Time: 07:45 Subjective: no sob or nausea -: abd pain is better -: had bm last night - Objective Resuscitation Status - Order Detail: 01/05/19 15:21 Resuscitation Status Routine Resuscitation Status: FULL: Full Resuscitation MAR Reviewed: Yes Vital Signs & Weight: Vital Signs (12 hours) Temp Pulse Resp BP Pulse Ox 01/08/19 11:34 98.6 F 76 16 96/60 99 01/08/19 08:00 99 01/08/19 07:47 98.4 F 80 16 101/65 99 01/08/19 04:00 98.6 F 85 14 105/68 98 Weight Weight 135 lb 12.8 oz Most Recent Monitor Data Heart Rate from ECG 98 NIBP 106/77 NIBP BP-Mean 86 Respiration from ECG 22 I&O: 01/07/19 01/08/19 01/09/19 06:59 06:59 06:59 Intake Total 3400 319 Output Total 5100 1300 Balance -1700 -981 Result Diagrams: 01/08/19 04:26 01/08/19 04:26 Additional Labs: Accuchecks 01/08/19 01/07/19 01/07/19 11:37 20:44 16:05 POC Glucose 279 H 312 H 227 H Phys Exam - Physical Examination HEENT: PERRLA, moist MMs Neck: no JVD, supple Respiratory: no wheezing, no rales Cardiovascular: RRR, no significant murmur Gastrointestinal: soft, no distention, positive bowel sounds Musculoskeletal: no edema, pulses present Neurological: non-focal, moves all 4 limbs Psychiatric: normal affect, A&O x 3 Dx/Plan (1) Metabolic acidosis Code(s): E87.2 - ACIDOSIS Status: Acute Comment: severe (2) DKA (diabetic ketoacidoses) Code(s): E13.10 - OTH DIABETES MELLITUS WITH KETOACIDOSIS WITHOUT COMA Status : Resolved Qualifiers: Diabetes mellitus type: type 2 Diabetes mellitus complication detail: without coma Qualified Code(s): E11.10 - Type 2 diabetes mellitus with ketoacidosis without coma (3) Abdominal pain Code(s): R10.9 - UNSPECIFIED ABDOMINAL PAIN Status: Acute Qualifiers: Abdominal location: epigastric Qualified Code(s): R10.13 - Epigastric pain (4) Anemia Code(s): D64.9 - ANEMIA, UNSPECIFIED Status: Acute Qualifiers: Anemia type: unspecified type Qualified Code(s): D64.9 - Anemia, unspecified (5) Nausea & vomiting Code(s): R11.2 - NAUSEA WITH VOMITING, UNSPECIFIED Status: Resolved (6) HTN (hypertension) Code(s): I10 - ESSENTIAL (PRIMARY) HYPERTENSION Status: Chronic Qualifiers: Hypertension type: essential hypertension Qualified Code(s): I10 - Essential (primary) hypertension (7) Dyslipidemia Code(s): E78.5 - HYPERLIPIDEMIA, UNSPECIFIED Status: Chronic - Plan d/w reg persistent met acidosis -: egd per gi advice -: abd pain is getting better but still there -: is on protonix, lantus -: tolerating oral diet, urine electrolytes * . Review of Systems - Medications/Allergies Allergies/Adverse Reactions: Allergies Allergy/AdvReac Type Severity Reaction Status Date / Time No Known Allergies Allergy Unverified 01/05/19 15:40 Medications: Current Medications Acetaminophen (Tylenol) 650 mg PO Q4H PRN PRN Reason: Headache/Fever/Mild Pain (1-3) Dextrose/Water (Dextrose 50%) 25 gm SLOW IVP PRN PRN PRN Reason: Hypoglycemia Enoxaparin Sodium (Lovenox) 40 mg SC 0900 [facility] Last Admin: 01/08/19 10:01 Dose: 40 mg Glucagon (Glucagon) 1 mg IM PRN PRN PRN Reason: Hypoglycemia Guaifenesin/Dextromethorphan (Robitussin Dm) 15 ml PO Q4H PRN PRN Reason: Cough Dextrose/Water (D5w) 1,000 mls @ 0 mls/hr IV .Q0M PRN PRN Reason: Hypoglycemia Insulin Glargine 12 units/ (Miscellaneous Medication) 0.12 mls @ 0 mls/hr SC BID [facility] Last Admin: 01/08/19 10:02 Dose: 0.12 mls Sodium Bicarbonate 150 meq/ (Dextrose/Water) 1,150 mls @ 100 mls/hr IV NOW [facility] Stop: 01/08/19 20:59 Last Admin: 01/08/19 09:59 Dose: 1,150 mls Insulin Human Lispro (Humalog) 0 units SC .MODERATE SLIDING SC PRN PRN Reason: Moderate Correctional Scale Last Admin: 01/07/19 16:12 Dose: 4 unit Insulin Human Lispro (Humalog) 0 units SC .BEDTIME SLIDING SC PRN PRN Reason: Bedtime Correctional Scale Last Admin: 01/07/19 21:19 Dose: 4 unit Magnesium Oxide (Magnesium Oxide) 400 mg PO DAILY [facility] Last Admin: 01/08/19 10:01 Dose: 400 mg Miscellaneous Medication (Phos-Nak) 1 pkt PO BID [facility] Stop: 01/10/19 09:01 Last Admin: 01/08/19 10:01 Dose: 1 pkt Ondansetron HCl (Zofran) 4 mg IVP Q6H PRN PRN Reason: Nausea/Vomiting Pantoprazole Sodium (Protonix) 40 mg IVP DAILY [facility] Last Admin: 01/08/19 09:02 Dose: 40 mg Potassium Chloride (K-Dur) 40 meq PO BID-[facility] Last Admin: 01/08/19 10:01 Dose: 40 meq Sodium Chloride (Flush - Normal Saline) 10 ml IVF Q12HR [facility] Last Admin: 01/08/19 09:03 Dose: Not Given Sodium Chloride (Flush - Normal Saline) 10 ml IVF PRN PRN PRN Reason: Saline Flush
[2019-01-08] MEDS: HumaLOG 300 UNITS/3 ML VIAL SC PRN ×2 (13:15→18:23)
[2019-01-08 13:46] LABS: Bilirubin Negative (Negative); Blood, Urine Negative (Negative); Clarity CLEAR (Clear); Glucose, Urine (Dipstick) >=1000 mg/dL (Negative); Leukocyte Negative (Negative); Nitrite Negative (Negative); Protein, Urine (Dipstick) Trace mg/dL (Neg-Trace); Specific Gravity, Urine 1.026 (1.002-1.036); pH, Urine 6.5 (5.0-9.0)
--- NOTE | 2019-01-08 20:32 | EKG ---
Test Reason : Blood Pressure : / mmHG Vent. Rate : 094 BPM Atrial Rate : 094 BPM P-R Int : 134 ms QRS Dur : 076 ms QT Int : 394 ms P-R-T Axes : 056 063 050 degrees QTc Int : 492 ms Normal sinus rhythm Prolonged QT Abnormal ECG Confirmed by KEITH PEREZ [id number]), market editor LB MAHONEY ([id number] on 01/08/2019 8:31:29 PM Referred By: Confirmed By:KEITH PEREZ
[2019-01-08] MEDS: Acetaminophen 325 MG TAB PO PRN (20:48)
--- NOTE | 2019-01-08 23:02 | PRG ---
DATE OF SERVICE: 01/08/2019 SUBJECTIVE: The patient was planned for upper endoscopy earlier this morning given improvement of her clinical status; however, she continued to have significant acidosis as noted on labs with a bicarbonate level of 15. Today, she also continues to have increased midepigastric abdominal pain that has improved slightly from previous, but is still severe, resulting in mild nausea but no vomiting. She has been able to ambulate through the hallway without difficulty. Currently, she denies any fevers, chills, GI bleeding, diarrhea, or constipation. PHYSICAL EXAMINATION: VITAL SIGNS: Temperature 98.4, pulse 81, blood pressure 106/63, respiratory rate 16, saturating 97% on room air. GENERAL: The patient was sitting at bedside, in no acute distress. Alert and oriented x4. CARDIOVASCULAR: Regular rate and rhythm. RESPIRATORY: Clear to auscultation bilaterally. ABDOMEN: Normoactive bowel sounds. Soft, nondistended. Tenderness to palpation in the midepigastric and right upper quadrant. EXTREMITIES: No cyanosis, clubbing, or edema. LABORATORY DATA: CBC with a white blood cell count of 9.3, hemoglobin 10, hematocrit 30.4, platelets 225. Chemistry with a sodium of 132, potassium 3.7, chloride 110, CO2 of 15, BUN 5, creatinine 0.56, glucose 194. IMAGING DATA: No current GI imaging is available for review. ASSESSMENT: 1. Severe epigastric pain with CT findings suggestive of pancreatitis versus duodenitis. 2. Diabetic ketoacidosis, resolving but with continued acidosis on labs. RECOMMENDATIONS: 1. Would continue clear liquids today with n.p.o. at midnight in anticipation for upper endoscopy tomorrow. 2. If upper endoscopy is negative and she is still having continued pain, then I would recommend a repeat CT scan to assess for interval progression of possible pancreatitis. 3. We will continue to follow. Please call with any questions. Job ID: [id number]
[2019-01-08 23:53] LABS: Anion Gap 12 mmol/L (10-20); BUN (Urea Nitrogen) Less than 4 mg/dL (7.0-18.7); Calc. Creatinine Clearance 128 mL/min (70-130); Carbon Dioxide 21 mmol/L (22-29); Chloride 105 mmol/L (98-107); Estimated GFR-MDRD Greater than 90; Glucose 182 mg/dL (70-105); Potassium 3.4 mmol/L (3.5-5.1); Sodium 135 mmol/L (136-145)
[2019-01-09] MEDS ORDERED: Sodium Chloride 0.45% 1,000 ML IV SCH (00:15)
[2019-01-09] MEDS: Pantoprazole 40 MG VIAL IVP SCH (09:27)
[2019-01-09] MEDS: Magnesium Oxide 400 MG TAB PO SCH (09:27)
[2019-01-09] MEDS: Potassium Chloride 20 MEQ TAB PO SCH ×2 (09:27→17:19)
[2019-01-09] MEDS: Enoxaparin Sodium 40 MG/0.4 ML SYRINGE SC SCH (09:28)
[2019-01-09] MEDS: Insulin Glargine 12 UNITS in Pre-Filled Syringe 1 EACH SC SCH (09:39)
--- NOTE | 2019-01-09 09:54 | OP ---
DATE OF PROCEDURE: 01/09/2019 PROCEDURE PERFORMED: Esophagogastroduodenoscopy with biopsy. INDICATIONS FOR PROCEDURE: Midepigastric abdominal pain, abnormal GI imaging with thickening of the stomach and proximal small bowel. DESCRIPTION OF PROCEDURE: After the risks and benefits of the procedure were explained to the patient including risks of bleeding, infection, perforation, reactions to anesthesia, aspiration, and/or pain, informed consent was obtained. The patient was then taken to the endoscopy suite, where deep sedation was administered via propofol and anesthesia support. Once adequate sedation was achieved, the standard gastroscope was introduced into the mouth with intubation of the esophagus, stomach, and the proximal small intestine with the findings listed below. The patient tolerated the procedure well with no immediate perioperative complications. Upon completion of the procedure, all equipment was removed from the patient and she was transferred to PACU in satisfactory condition. FINDINGS: Esophagus: Normal-appearing mucosa was seen in the proximal, mid, and distal esophagus. There was no evidence of erosions, ulcerations, mass lesions, or active/recent bleeding. Both the diaphragmatic pinch and GE junction were well seen at approximately 38 cm past the incisors. Stomach: Moderately severe diffuse mucosal erythema was seen throughout the entire stomach including the cardia, fundus, body, greater curvature, antrum, and incisura. However, there were no associated erosions, ulcerations, mass lesions, or active/recent bleeding. Random biopsies were taken from the antrum, incisura and body for evaluation of H pylori status. Mild lightening/whitening of the antral mucosa was seen at the pylorus, which could be due to intestinal metaplasia. This was biopsied along with random gastric biopsies. Duodenum: Normal-appearing mucosa was seen in both the duodenal bulb and second portion of the duodenum. There was no evidence of erosions, ulcerations, mass lesions, or active/recent bleeding. IMPRESSION: 1. Moderately severe diffuse mucosal erythema seen in the stomach consistent with moderate gastritis with unknown etiology, status post biopsies. 2. Otherwise normal upper endoscopy. RECOMMENDATIONS: 1. We will follow up on the biopsy results with further management based on the results. 2. We will continue the patient on PPI daily, but increased to b.i.d. dosing given the moderately severe gastritis. 3. Would advance the patient's diet to a full liquid diet and advance as tolerated thereafter. We will continue to follow. Please call with any questions. Job ID: [id number]
--- NOTE | 2019-01-09 10:19 | PDOC.PN ---
- Subjective Encounter Start Date: 01/09/19 Encounter Start Time: 07:00 Subjective: abd pain+, no nausea or vomiting -: is tolerating liq diet - Objective Resuscitation Status - Order Detail: 01/05/19 15:21 Resuscitation Status Routine Resuscitation Status: FULL: Full Resuscitation MAR Reviewed: Yes Vital Signs & Weight: Vital Signs (12 hours) Temp Pulse Resp BP BP Pulse Ox 01/09/19 09:43 98.4 F 84 16 98/65 99 01/09/19 08:00 99 01/09/19 07:36 98.4 F 84 14 100/67 99 01/09/19 04:00 98.5 F 95 16 103/60 98 Weight Weight 135 lb 12.8 oz Most Recent Monitor Data Heart Rate from ECG 98 NIBP 106/77 NIBP BP-Mean 86 Respiration from ECG 22 I&O: 01/08/19 01/09/19 01/10/19 06:59 06:59 06:59 Intake Total 319 3100 Output Total 1300 Balance -981 3100 Result Diagrams: 01/08/19 04:26 01/08/19 23:23 Additional Labs: Accuchecks 01/09/19 01/08/19 01/08/19 04:57 20:08 16:40 POC Glucose 234 H 229 H 204 H 01/08/19 01/08/19 11:37 04:59 POC Glucose 279 H 195 H Phys Exam - Physical Examination HEENT: PERRLA, moist MMs Neck: no JVD, supple Respiratory: no wheezing, no rales Cardiovascular: RRR, no significant murmur Gastrointestinal: soft, no distention, positive bowel sounds no rigidity or guarding Musculoskeletal: no edema, pulses present Neurological: non-focal, moves all 4 limbs Psychiatric: normal affect, A&O x 3 Dx/Plan (1) Metabolic acidosis Code(s): E87.2 - ACIDOSIS Status: Acute Comment: resolving (2) DKA (diabetic ketoacidoses) Code(s): E13.10 - OTH DIABETES MELLITUS WITH KETOACIDOSIS WITHOUT COMA Status : Resolved Qualifiers: Diabetes mellitus type: type 2 Diabetes mellitus complication detail: without coma Qualified Code(s): E11.10 - Type 2 diabetes mellitus with ketoacidosis without coma (3) Abdominal pain Code(s): R10.9 - UNSPECIFIED ABDOMINAL PAIN Status: Acute Qualifiers: Abdominal location: epigastric Qualified Code(s): R10.13 - Epigastric pain (4) Anemia Code(s): D64.9 - ANEMIA, UNSPECIFIED Status: Acute Qualifiers: Anemia type: unspecified type Qualified Code(s): D64.9 - Anemia, unspecified (5) Nausea & vomiting Code(s): R11.2 - NAUSEA WITH VOMITING, UNSPECIFIED Status: Resolved (6) HTN (hypertension) Code(s): I10 - ESSENTIAL (PRIMARY) HYPERTENSION Status: Chronic Qualifiers: Hypertension type: essential hypertension Qualified Code(s): I10 - Essential (primary) hypertension (7) Dyslipidemia Code(s): E78.5 - HYPERLIPIDEMIA, UNSPECIFIED Status: Chronic (8) DM type 2 (diabetes mellitus, type 2) Status: Chronic Qualifiers: Diabetes mellitus usp insulin use: without usp use Diabetes mellitus complication status: with unspecified complications Qualified Code(s) : E11.8 - Type 2 diabetes mellitus with unspecified complications (9) Pancreatitis Code(s): K85.90 - ACUTE PANCREATITIS WITHOUT NECROSIS OR INFECTION, UNSP Status: Suspected Qualifiers: Chronicity: acute Pancreatitis type: unspecified pancreatitis type (10) Gastritis Code(s): K29.70 - GASTRITIS, UNSPECIFIED, WITHOUT BLEEDING Status: Acute Qualifiers: Gastritis type: unspecified gastritis Chronicity: acute Gastritis bleeding: without bleeding Qualified Code(s): K29.00 - Acute gastritis without bleeding - Plan had egd this am, shows gastritis, no duodenal ulcer -: will be on protonix bid, liq diet to adv as tolerated -: ?CT abd repeat to r/o pancreatitis complication -: hco3 is improving, electrolytes are stable -: will increase lantus to 20u bid * . Review of Systems - Medications/Allergies Allergies/Adverse Reactions: Allergies Allergy/AdvReac Type Severity Reaction Status Date / Time No Known Allergies Allergy Unverified 01/05/19 15:40 Medications: Current Medications Acetaminophen (Tylenol) 650 mg PO Q4H PRN PRN Reason: Headache/Fever/Mild Pain (1-3) Last Admin: 01/08/19 20:48 Dose: 650 mg Dextrose/Water (Dextrose 50%) 25 gm SLOW IVP PRN PRN PRN Reason: Hypoglycemia Enoxaparin Sodium (Lovenox) 40 mg SC 0900 [facility] Last Admin: 01/09/19 09:28 Dose: 40 mg Glucagon (Glucagon) 1 mg IM PRN PRN PRN Reason: Hypoglycemia Guaifenesin/Dextromethorphan (Robitussin Dm) 15 ml PO Q4H PRN PRN Reason: Cough Dextrose/Water (D5w) 1,000 mls @ 0 mls/hr IV .Q0M PRN PRN Reason: Hypoglycemia Insulin Glargine 12 units/ (Miscellaneous Medication) 0.12 mls @ 0 mls/hr SC BID [facility] Last Admin: 01/09/19 09:39 Dose: 0.12 mls Sodium Chloride (1/2 Normal Saline) 1,000 mls @ 50 mls/hr IV .Q20H [facility] Last Admin: 01/09/19 00:20 Dose: 1,000 mls Insulin Human Lispro (Humalog) 0 units SC .MODERATE SLIDING SC PRN PRN Reason: Moderate Correctional Scale Last Admin: 01/08/19 18:23 Dose: 4 unit Insulin Human Lispro (Humalog) 0 units SC .BEDTIME SLIDING SC PRN PRN Reason: Bedtime Correctional Scale Last Admin: 01/07/19 21:19 Dose: 4 unit Magnesium Oxide (Magnesium Oxide) 400 mg PO DAILY [facility] Last Admin: 01/09/19 09:27 Dose: 400 mg Miscellaneous Medication (Phos-Nak) 1 pkt PO BID [facility] Stop: 01/10/19 09:01 Last Admin: 01/09/19 09:27 Dose: 1 pkt Ondansetron HCl (Zofran) 4 mg IVP Q6H PRN PRN Reason: Nausea/Vomiting Pantoprazole Sodium (Protonix) 40 mg IVP DAILY [facility] Last Admin: 01/09/19 09:27 Dose: 40 mg Potassium Chloride (K-Dur) 40 meq PO BID-[facility] Last Admin: 01/09/19 09:27 Dose: 40 meq Sodium Chloride (Flush - Normal Saline) 10 ml IVF Q12HR [facility] Last Admin: 01/09/19 09:28 Dose: Not Given Sodium Chloride (Flush - Normal Saline) 10 ml IVF PRN PRN PRN Reason: Saline Flush
[2019-01-09 10:36] LABS: Anion Gap 15 mmol/L (10-20); BUN (Urea Nitrogen) 5 mg/dL (7.0-18.7); Calc. Creatinine Clearance 110 mL/min (70-130); Calcium 8.3 mg/dL (7.8-10.44); Carbon Dioxide 19 mmol/L (22-29); Chloride 104 mmol/L (98-107); Estimated GFR-MDRD Greater than 90; Glucose 232 mg/dL (70-105); Potassium 3.7 mmol/L (3.5-5.1); Sodium 134 mmol/L (136-145)
[2019-01-09] MEDS: HumaLOG 300 UNITS/3 ML VIAL SC PRN ×3 (11:51→20:35)
[2019-01-09] MEDS: Sodium Bicarbonate 75 MEQ in Sodium Chloride 0.45% 1,000 ML IV SCH (12:30)
--- NOTE | 2019-01-09 13:08 | PRG ---
DATE OF SERVICE: 01/09/2019 SUBJECTIVE: Patient was seen and examined at bedside and overnight events noted. Patient denies any shortness of breath or chest pain or palpitation. No history of nausea or vomiting or diarrhea or fever or chills or cramps. OBJECTIVE: GENERAL: This is a thin-built female in no apparent distress. VITAL SIGNS: Temperature 98.4. Heart rate 84. Respiratory rate 16. Blood pressure 98/65. HEENT: Atraumatic, normocephalic. Oral mucosa is moist NECK: Supple. CARDIOVASCULAR: S1, S2 heard. Rate and rhythm regular. RESPIRATORY: Clear to auscultation. GASTROINTESTINAL: Abdomen is soft. MUSCULOSKELETAL: No tenderness. No edema. DERMATOLOGIC: No skin rash. NEUROLOGIC: Alert and awake and oriented X3. No focal neurologic deficits. Moving all the extremities. PSYCHIATRIC: Mood and affect normal. LABORATORY DATA: Potassium is 3.7, BUN is 5, creatinine is 0.6. ASSESSMENT AND PLAN: 1. Metabolic acidosis, most likely non-renal. Urine anion gap is pending. Monitor. 2. Continue bicarb drip as tolerated. 3. Hyponatremia, stable. 4. Hyperglycemia. 5. Nausea and vomiting with diarrhea, better. 6. Edema, controlled. 7. Hypertension, stable. 8. Continue bicarb supplements and monitor. Job ID: [id number]
[2019-01-09] MEDS ORDERED: PROPOFOL 200 MG/20 ML VIAL ONE (13:20)
[2019-01-09] MEDS: Insulin Glargine 20 UNITS in Pre-Filled Syringe 1 EACH SC SCH (20:32)
[2019-01-09] MEDS: Acetaminophen 325 MG TAB PO PRN (20:43)
[2019-01-10 06:38] LABS: #Basophils 0.1 thou/uL (0.0-0.2); #Eosinphils 0.2 thou/uL (0.0-0.7); #Lymphocytes 2.8 thou/uL (1.20-3.40); #Monocytes 0.8 thou/uL (0.11-0.59); #Neutrophils 3.7 thou/uL (1.40-6.50); %Basophils 0.8 % (0.0-1.0); %Eosinophils 2.1 % (0.0-10.0); %Lymphocytes 37.5 % (21.0-51.0); %Monocytes 10.7 % (0.0-10.0); %Neutrophils 48.9 % (42.0-75.0); Hemoglobin 9.4 g/dL (12.0-16.0); Mean Corpuscular Hemoglobin 27.5 pg (27.0-31.0); Mean Corpuscular Volume 83.3 fL (78.0-98.0); Mean Platelet Volume 7.4 fL (7.4-10.4); Platelet Count 307 thou/uL (130-400); Red Blood Cell (RBC) Count 3.43 mill/uL (4.20-5.40); White Blood Cell (WBC) Count 7.6 thou/uL (4.8-10.8)
[2019-01-10 06:53] LABS: Anion Gap 12 mmol/L (10-20); BUN (Urea Nitrogen) Less than 4 mg/dL (7.0-18.7); Calc. Creatinine Clearance 121 mL/min (70-130); Calcium 8.4 mg/dL (7.8-10.44); Carbon Dioxide 25 mmol/L (22-29); Chloride 104 mmol/L (98-107); Estimated GFR-MDRD Greater than 90; Glucose 133 mg/dL (70-105); Sodium 137 mmol/L (136-145)
[2019-01-10] MEDS: Potassium Chloride 20 MEQ TAB PO SCH ×2 (08:15→16:50)
[2019-01-10] MEDS: Insulin Glargine 20 UNITS in Pre-Filled Syringe 1 EACH SC SCH ×2 (08:16→21:11)
[2019-01-10] MEDS: Magnesium Oxide 400 MG TAB PO SCH (08:17)
[2019-01-10] MEDS: Enoxaparin Sodium 40 MG/0.4 ML SYRINGE SC SCH (08:17)
[2019-01-10] MEDS: Sodium Bicarbonate 75 MEQ in Sodium Chloride 0.45% 1,000 ML IV SCH (08:25)
[2019-01-10] MEDS ORDERED: ISOVUE-370 76%-LOCM 1 ML ONE (10:47)
[2019-01-10] MEDS: HumaLOG 300 UNITS/3 ML VIAL SC PRN ×2 (11:55→16:52)
--- NOTE | 2019-01-10 13:05 | PDOC.PN ---
- Subjective Encounter Start Date: 01/10/19 Encounter Start Time: 10:15 Subjective: abd pain is better -: is tolerating oral diet - Objective Resuscitation Status - Order Detail: 01/05/19 15:21 Resuscitation Status Routine Resuscitation Status: FULL: Full Resuscitation MAR Reviewed: Yes Vital Signs & Weight: Vital Signs (12 hours) Temp Pulse Resp BP Pulse Ox 01/10/19 07:18 98.1 F 81 16 109/68 97 Weight Weight 135 lb 12.8 oz Most Recent Monitor Data Heart Rate from ECG 98 NIBP 106/77 NIBP BP-Mean 86 Respiration from ECG 22 I&O: 01/09/19 01/10/19 01/11/19 06:59 06:59 06:59 Intake Total 3100 1800 Balance 3100 1800 Result Diagrams: 01/10/19 06:00 01/10/19 06:00 Additional Labs: Accuchecks 01/10/19 01/10/19 01/09/19 11:14 05:55 20:31 POC Glucose 189 H 132 H 206 H 01/09/19 16:55 POC Glucose 166 H Phys Exam - Physical Examination HEENT: PERRLA, moist MMs Neck: no JVD, supple Respiratory: no wheezing, no rales Cardiovascular: RRR, no significant murmur Gastrointestinal: soft, no distention, positive bowel sounds no rigidity or guarding Musculoskeletal: no edema, pulses present Neurological: non-focal, moves all 4 limbs Psychiatric: normal affect, A&O x 3 Dx/Plan (1) Metabolic acidosis Code(s): E87.2 - ACIDOSIS Status: Acute Comment: resolving (2) DKA (diabetic ketoacidoses) Code(s): E13.10 - OTH DIABETES MELLITUS WITH KETOACIDOSIS WITHOUT COMA Status : Resolved Qualifiers: Diabetes mellitus type: type 2 Diabetes mellitus complication detail: without coma Qualified Code(s): E11.10 - Type 2 diabetes mellitus with ketoacidosis without coma (3) Abdominal pain Code(s): R10.9 - UNSPECIFIED ABDOMINAL PAIN Status: Acute Qualifiers: Abdominal location: epigastric Qualified Code(s): R10.13 - Epigastric pain (4) Anemia Code(s): D64.9 - ANEMIA, UNSPECIFIED Status: Acute Qualifiers: Anemia type: unspecified type Qualified Code(s): D64.9 - Anemia, unspecified (5) Nausea & vomiting Code(s): R11.2 - NAUSEA WITH VOMITING, UNSPECIFIED Status: Resolved (6) HTN (hypertension) Code(s): I10 - ESSENTIAL (PRIMARY) HYPERTENSION Status: Chronic Qualifiers: Hypertension type: essential hypertension Qualified Code(s): I10 - Essential (primary) hypertension (7) Dyslipidemia Code(s): E78.5 - HYPERLIPIDEMIA, UNSPECIFIED Status: Chronic (8) DM type 2 (diabetes mellitus, type 2) Status: Chronic Qualifiers: Diabetes mellitus terminal superintendent insulin use: without terminal superintendent use Diabetes mellitus complication status: with unspecified complications Qualified Code(s) : E11.8 - Type 2 diabetes mellitus with unspecified complications (9) Pancreatitis Code(s): K85.90 - ACUTE PANCREATITIS WITHOUT NECROSIS OR INFECTION, UNSP Status: Suspected Qualifiers: Chronicity: acute Pancreatitis type: unspecified pancreatitis type (10) Gastritis Code(s): K29.70 - GASTRITIS, UNSPECIFIED, WITHOUT BLEEDING Status: Acute Qualifiers: Gastritis type: unspecified gastritis Chronicity: acute Gastritis bleeding: without bleeding Qualified Code(s): K29.00 - Acute gastritis without bleeding - Plan repeat CT pancreas protocol today -: is tolerating oral diet -: hco3 is normal but is on hco3 drip -: dc plan in 24hrs if ct shows no complications -: on lantus 20u bid and protonix * . Review of Systems - Medications/Allergies Allergies/Adverse Reactions: Allergies Allergy/AdvReac Type Severity Reaction Status Date / Time No Known Allergies Allergy Unverified 01/05/19 15:40 Medications: Current Medications Acetaminophen (Tylenol) 650 mg PO Q4H PRN PRN Reason: Headache/Fever/Mild Pain (1-3) Last Admin: 01/09/19 20:43 Dose: 650 mg Dextrose/Water (Dextrose 50%) 25 gm SLOW IVP PRN PRN PRN Reason: Hypoglycemia Enoxaparin Sodium (Lovenox) 40 mg SC 0900 JUSTO Last Admin: 01/10/19 08:17 Dose: 40 mg Glucagon (Glucagon) 1 mg IM PRN PRN PRN Reason: Hypoglycemia Guaifenesin/Dextromethorphan (Robitussin Dm) 15 ml PO Q4H PRN PRN Reason: Cough Dextrose/Water (D5w) 1,000 mls @ 0 mls/hr IV .Q0M PRN PRN Reason: Hypoglycemia Insulin Glargine 20 units/ (Miscellaneous Medication) 0.2 mls @ 0 mls/hr SC BID [facility] Last Admin: 01/10/19 08:16 Dose: 0.2 mls Sodium Bicarbonate 75 meq/ (Sodium Chloride) 1,075 mls @ 50 mls/hr IV .[id number] [facility] Last Admin: 01/10/19 08:25 Dose: 1,075 mls Insulin Human Lispro (Humalog) 0 units SC .MODERATE SLIDING SC PRN PRN Reason: Moderate Correctional Scale Last Admin: 01/10/19 11:55 Dose: 2 unit Insulin Human Lispro (Humalog) 0 units SC .BEDTIME SLIDING SC PRN PRN Reason: Bedtime Correctional Scale Last Admin: 01/09/19 20:35 Dose: 2 unit Magnesium Oxide (Magnesium Oxide) 400 mg PO DAILY [facility] Last Admin: 01/10/19 08:17 Dose: 400 mg Ondansetron HCl (Zofran) 4 mg IVP Q6H PRN PRN Reason: Nausea/Vomiting Pantoprazole Sodium (Protonix) 40 mg PO BID [facility] Last Admin: 01/10/19 08:16 Dose: 40 mg Potassium Chloride (K-Dur) 40 meq PO BID[facility] Last Admin: 01/10/19 08:15 Dose: 40 meq Sodium Chloride (Flush - Normal Saline) 10 ml IVF Q12HR [facility] Last Admin: 01/10/19 09:22 Dose: Not Given Sodium Chloride (Flush - Normal Saline) 10 ml IVF PRN PRN PRN Reason: Saline Flush
--- NOTE | 2019-01-10 13:08 | PRG ---
DATE OF SERVICE: 01/10/2019 SUBJECTIVE: The patient is sitting up in big chair, reports feeling fine. She has bloated sensation, but has had complete resolution of abdominal pain. There is no nausea or vomiting. OBJECTIVE: VITAL SIGNS: Temperature is 98.1, blood pressure 109/68, and pulse of 81. GENERAL: She is alert, no distress. HEENT: Shows anicteric sclerae. NECK: Supple. CV: Shows normal S1 and S2. Regular rate and rhythm. CHEST: Shows a breath sounds. ABDOMEN: Soft and flat. No distention. No tenderness. She has active bowel sounds. EXTREMITIES: Show no edema. LABORATORY DATA: WBCs 7.6, hemoglobin 9.4, and platelet count of 307. Electrolytes within normal range. Creatinine 0.57. All blood cultures are negative. ASSESSMENT: 1. Severe abdominal pain, on admission with acidosis, resolved. CT is suggestive of pancreatitis with a negative esophagogastroduodenoscopy for any duodenal abnormality. Clinically much improved with resolution of abdominal pain and acidosis. 2. Gastritis, on esophagogastroduodenoscopy. 3. Adult onset diabetes. RECOMMENDATIONS: 1. Advance to regular ADA diet. 2. If the patient can tolerate diet, can be discharged to home from GI standpoint. No need for repeat imaging. Job ID: [id number]
--- NOTE | 2019-01-10 17:29 | CT ---
CT ABDOMEN WITH AND WITHOUT IV CONTRAST: Date: 01/10/19 HISTORY: Abdominal pain. Patient had abnormal CT exam on 01/05/19 demonstrating fluid and stranding adjacent t o the pancreas and duodenum. COMPARISON: 01/05/19. FINDINGS: Imaged lung bases are clear. The liver, spleen, bilateral adrenal glands, kidneys, and abdominal aorta demonstrate a normal CT krista earance. The opacified bowel has a normal appearance. The pancreas enhances normally. However, there is inflammatory stranding seen adjacent to the head, a s well as body of the pancreas, which are also in the region of the duodenum, and there is mild wall thickening involving portions of the second and third portions of the duodenum which was also seen on the prior exam. However, there is a loculated fluid collection extending from the pancreatic head la terally and into the right paracolic gutter, and also extends inferiorly just anterior to the IVC. Th e collection extends into the pelvis. This was also seen on the prior exam and has a similar appearan ce to that exam. There thin enhancing duran of the collection with multiple septations. Findings coul d be on the basis of pseudocyst formation secondary to pancreatitis or possibly secondary to infectio n; however, no gas is seen within the collection. The collection is overall slightly larger in size c ompared to the prior exam, with the largest portion of the collection seen within the pelvis. IMPRESSION: 1. Multiloculated appearing fluid collection with thin enhancing duran seen adjacent to the inferior aspect of the pancreas and duodenum which extends laterally and inferiorly and into the paracolic gu tter. The degree of fluid has increased from the prior exam. Given the irregularity of the collection , the overall dimensions are difficult to accurately measure, although a portion of the collection ju st inferior to the pancreas measures 7.5 cm craniocaudal x 6.2 cm transverse x 4.6 cm AP. This collec tion again could be related to pseudocyst formation secondary to pancreatitis, but infection\abscess formation cannot be entirely excluded. 2. Thickening of the second and third portions of the duodenum in the region of the collection, whic h could be reactive in origin and/or related to duodenitis. 3. The pancreas appears to enhance normally. POS: [facility]
[2019-01-11] MEDS: HumaLOG 300 UNITS/3 ML VIAL SC PRN ×4 (05:44→21:55)
[2019-01-11 06:57] LABS: Anion Gap 12 mmol/L (10-20); BUN (Urea Nitrogen) 5 mg/dL (7.0-18.7); Calc. Creatinine Clearance 113 mL/min (70-130); Calcium 9.1 mg/dL (7.8-10.44); Carbon Dioxide 26 mmol/L (22-29); Chloride 101 mmol/L (98-107); Estimated GFR-MDRD Greater than 90; Glucose 159 mg/dL (70-105); Potassium 4.1 mmol/L (3.5-5.1); Sodium 135 mmol/L (136-145)
[2019-01-11] MEDS: Insulin Glargine 20 UNITS in Pre-Filled Syringe 1 EACH SC SCH ×2 (08:10→21:54)
[2019-01-11] MEDS: Potassium Chloride 20 MEQ TAB PO SCH ×2 (08:10→15:50)
[2019-01-11] MEDS: Magnesium Oxide 400 MG TAB PO SCH (08:10)
[2019-01-11] MEDS: Enoxaparin Sodium 40 MG/0.4 ML SYRINGE SC SCH (08:11)
--- NOTE | 2019-01-11 11:42 | PDOC.PN ---
- Subjective Encounter Start Date: 01/11/19 Encounter Start Time: 11:00 Subjective: no abd pain or nausea -: is amb and tolerating oral diet - Objective Resuscitation Status - Order Detail: 01/05/19 15:21 Resuscitation Status Routine Resuscitation Status: FULL: Full Resuscitation MAR Reviewed: Yes Vital Signs & Weight: Vital Signs (12 hours) Temp Pulse Resp BP BP Pulse Ox 01/11/19 11:13 98.5 F 67 19 91/57 L 99 01/11/19 07:25 98.6 F 68 19 94/64 97 Weight Weight 135 lb 12.8 oz Most Recent Monitor Data Heart Rate from ECG 98 NIBP 106/77 NIBP BP-Mean 86 Respiration from ECG 22 I&O: 01/10/19 01/11/19 01/12/19 06:59 06:59 06:59 Intake Total 1800 Balance 1800 Result Diagrams: 01/10/19 06:00 01/11/19 05:26 Additional Labs: Accuchecks 01/11/19 01/10/19 01/10/19 04:37 20:52 16:11 POC Glucose 175 H 237 H 185 H 01/10/19 11:14 POC Glucose 189 H Phys Exam - Physical Examination HEENT: PERRLA, moist MMs Neck: no JVD, supple Respiratory: no wheezing, no rales Cardiovascular: RRR, no significant murmur Gastrointestinal: soft, non-tender, no distention, positive bowel sounds Musculoskeletal: no edema, pulses present Neurological: non-focal, moves all 4 limbs Psychiatric: normal affect, A&O x 3 Dx/Plan (1) Pancreatitis Code(s): K85.90 - ACUTE PANCREATITIS WITHOUT NECROSIS OR INFECTION, UNSP Status: Acute Qualifiers: Chronicity: acute Pancreatitis type: unspecified pancreatitis type Comment: with pseudocysts (2) Metabolic acidosis Code(s): E87.2 - ACIDOSIS Status: Acute Comment: resolving (3) DKA (diabetic ketoacidoses) Code(s): E13.10 - OTH DIABETES MELLITUS WITH KETOACIDOSIS WITHOUT COMA Status : Resolved Qualifiers: Diabetes mellitus type: type 2 Diabetes mellitus complication detail: without coma Qualified Code(s): E11.10 - Type 2 diabetes mellitus with ketoacidosis without coma (4) Abdominal pain Code(s): R10.9 - UNSPECIFIED ABDOMINAL PAIN Status: Acute Qualifiers: Abdominal location: epigastric Qualified Code(s): R10.13 - Epigastric pain (5) Anemia Code(s): D64.9 - ANEMIA, UNSPECIFIED Status: Acute Qualifiers: Anemia type: unspecified type Qualified Code(s): D64.9 - Anemia, unspecified (6) Nausea & vomiting Code(s): R11.2 - NAUSEA WITH VOMITING, UNSPECIFIED Status: Resolved (7) HTN (hypertension) Code(s): I10 - ESSENTIAL (PRIMARY) HYPERTENSION Status: Chronic Qualifiers: Hypertension type: essential hypertension Qualified Code(s): I10 - Essential (primary) hypertension (8) Dyslipidemia Code(s): E78.5 - HYPERLIPIDEMIA, UNSPECIFIED Status: Chronic (9) DM type 2 (diabetes mellitus, type 2) Status: Chronic Qualifiers: Diabetes mellitus predatory animal exterminator insulin use: without [facility] use Diabetes mellitus complication status: with unspecified complications Qualified Code(s) : E11.8 - Type 2 diabetes mellitus with unspecified complications (10) Gastritis Code(s): K29.70 - GASTRITIS, UNSPECIFIED, WITHOUT BLEEDING Status: Acute Qualifiers: Gastritis type: other gastritis Chronicity: acute Gastritis bleeding: without bleeding Qualified Code(s): K29.00 - Acute gastritis without bleeding Comment: H.pylori +ve - Plan start amox and clarithromycin for h.pylori +ve gastritits -: on protonix bid, lantus 20u bid -: is off bicarb drip from last night -: dc in am if hco3 is normal * . Review of Systems - Medications/Allergies Allergies/Adverse Reactions: Allergies Allergy/AdvReac Type Severity Reaction Status Date / Time No Known Allergies Allergy Unverified 01/05/19 15:40 Medications: Current Medications Acetaminophen (Tylenol) 650 mg PO Q4H PRN PRN Reason: Headache/Fever/Mild Pain (1-3) Last Admin: 01/09/19 20:43 Dose: 650 mg Amoxicillin (Amoxil) 1,000 mg PO BID JUSTO Clarithromycin (Biaxin) 500 mg PO Q12HR [facility] Dextrose/Water (Dextrose 50%) 25 gm SLOW IVP PRN PRN PRN Reason: Hypoglycemia Enoxaparin Sodium (Lovenox) 40 mg SC 0900 JUSTO Last Admin: 01/11/19 08:11 Dose: 40 mg Glucagon (Glucagon) 1 mg IM PRN PRN PRN Reason: Hypoglycemia Guaifenesin/Dextromethorphan (Robitussin Dm) 15 ml PO Q4H PRN PRN Reason: Cough Dextrose/Water (D5w) 1,000 mls @ 0 mls/hr IV .Q0M PRN PRN Reason: Hypoglycemia Insulin Glargine 20 units/ (Miscellaneous Medication) 0.2 mls @ 0 mls/hr SC BID [facility] Last Admin: 01/11/19 08:10 Dose: 0.2 mls Insulin Human Lispro (Humalog) 0 units SC .MODERATE SLIDING SC PRN PRN Reason: Moderate Correctional Scale Last Admin: 01/11/19 05:44 Dose: 2 unit Insulin Human Lispro (Humalog) 0 units SC .BEDTIME SLIDING SC PRN PRN Reason: Bedtime Correctional Scale Last Admin: 01/09/19 20:35 Dose: 2 unit Magnesium Oxide (Magnesium Oxide) 400 mg PO DAILY [facility] Last Admin: 01/11/19 08:10 Dose: 400 mg Ondansetron HCl (Zofran) 4 mg IVP Q6H PRN PRN Reason: Nausea/Vomiting Pantoprazole Sodium (Protonix) 40 mg PO BID [facility] Last Admin: 01/11/19 08:11 Dose: 40 mg Potassium Chloride (K-Dur) 40 meq PO BID[facility] Last Admin: 01/11/19 08:10 Dose: 40 meq Sodium Chloride (Flush - Normal Saline) 10 ml IVF Q12HR [facility] Last Admin: 01/11/19 07:13 Dose: Not Given Sodium Chloride (Flush - Normal Saline) 10 ml IVF PRN PRN PRN Reason: Saline Flush
[2019-01-11] MEDS ORDERED: Clarithromycin 250 MG TAB PO SCH (21:00)
[2019-01-11] MEDS: AMOXicillin 250 MG CAP PO SCH (21:54)
--- NOTE | 2019-01-11 22:26 | PRG ---
DATE OF SERVICE: 01/11/2019 SUBJECTIVE: The patient states that she is feeling much better when compared to previous, adding that her abdominal pain has completely resolved. She does continue to have a mild bloating type sensation, but does not have any clear alleviating or exacerbating factors at this time. Currently, she denies any nausea, vomiting, fevers, chills, or bleeding. OBJECTIVE: VITAL SIGNS: Temperature 98.3, pulse 85, blood pressure , respiratory rate 18, saturating 97% on room air. GENERAL: The patient was sitting at bedside, in no acute distress. Alert and oriented x4. CARDIOVASCULAR: Regular rate and rhythm. RESPIRATORY: Clear to auscultation bilaterally. ABDOMEN: Normoactive bowel sounds. Soft, nontender, nondistended. EXTREMITIES: No cyanosis, clubbing, or edema. LABORATORY DATA: Chemistry showed a sodium of 135, potassium 4.1, chloride 101, CO2 of 26, BUN 5, creatinine 0.61, and a glucose of 159. IMAGING DATA: No current GI imaging is available for review. ASSESSMENT: 1. Acute pancreatitis. The patient presented to the hospital with severe abdominal pain in the midepigastric region, but imaging is consistent with acute pancreatitis. There was also some wall thickening both within the stomach and duodenum concerning for intraluminal process, but esophagogastroduodenoscopy obtained on January 09, 2019, only showed moderately severe diffuse mucosal erythema within the stomach with no other additional abnormalities. At this time, the patient's pain is much improved from previous. 2. Amls-bc-bntcarcu gastritis as seen on esophagogastroduodenoscopy. 3. Adult onset diabetes with diabetic ketoacidosis. RECOMMENDATIONS: Continue to advance diet as tolerated. If the patient can tolerate a more solid diet from GI standpoint, she could be discharged to home with followup in the GI Clinic. We will . Please call with any additional questions. Job ID: [id number]
[2019-01-12 05:35] LABS: Anion Gap 12 mmol/L (10-20); BUN (Urea Nitrogen) 9 mg/dL (7.0-18.7); Calc. Creatinine Clearance 115 mL/min (70-130); Calcium 8.7 mg/dL (7.8-10.44); Carbon Dioxide 24 mmol/L (22-29); Chloride 103 mmol/L (98-107); Estimated GFR-MDRD Greater than 90; Glucose 147 mg/dL (70-105); Potassium 4.2 mmol/L (3.5-5.1); Sodium 135 mmol/L (136-145)
[2019-01-12 07:27] VITALS: BP 103/70; TEMP 98.4
[2019-01-12] MEDS ORDERED: Clarithromycin 500 MG TAB PO SCH (09:00)
[2019-01-12] MEDS: Potassium Chloride 20 MEQ TAB PO SCH (09:04)
[2019-01-12] MEDS: Enoxaparin Sodium 40 MG/0.4 ML SYRINGE SC SCH (09:04)
[2019-01-12] MEDS: Insulin Glargine 20 UNITS in Pre-Filled Syringe 1 EACH SC SCH (09:05)
[2019-01-12] MEDS: Magnesium Oxide 400 MG TAB PO SCH (09:05)
[2019-01-12] MEDS: AMOXicillin 250 MG CAP PO SCH (09:14)
--- NOTE | 2019-01-12 12:38 | PDOC.PN ---
- Subjective Encounter Start Date: 01/12/19 Encounter Start Time: 07:45 Subjective: no abd pain or nausea -: tolerating oral diet -: and children at bedside - Objective Resuscitation Status - Order Detail: 01/05/19 15:21 Resuscitation Status Routine Resuscitation Status: FULL: Full Resuscitation MAR Reviewed: Yes Vital Signs & Weight: Vital Signs (12 hours) Temp Pulse Resp BP Pulse Ox 01/12/19 08:00 96 01/12/19 07:27 98.4 F 83 18 103/70 96 Weight Weight 135 lb 12.8 oz Most Recent Monitor Data Heart Rate from ECG 98 NIBP 106/77 NIBP BP-Mean 86 Respiration from ECG 22 Result Diagrams: 01/10/19 06:00 01/12/19 04:27 Additional Labs: Accuchecks 01/12/19 01/12/19 01/11/19 11:21 04:35 20:21 POC Glucose 244 H 141 H 208 H 01/11/19 15:45 POC Glucose 210 H Phys Exam - Physical Examination HEENT: PERRLA, moist MMs Neck: no JVD, supple Respiratory: no wheezing, no rales Cardiovascular: RRR, no significant murmur Gastrointestinal: soft, non-tender, no distention, positive bowel sounds Musculoskeletal: no edema, pulses present Neurological: non-focal, moves all 4 limbs Psychiatric: normal affect, A&O x 3 Dx/Plan (1) Pancreatitis Code(s): K85.90 - ACUTE PANCREATITIS WITHOUT NECROSIS OR INFECTION, UNSP Status: Acute Qualifiers: Chronicity: acute Pancreatitis type: unspecified pancreatitis type Comment: with pseudocysts (2) Metabolic acidosis Code(s): E87.2 - ACIDOSIS Status: Resolved (3) DKA (diabetic ketoacidoses) Code(s): E13.10 - OTH DIABETES MELLITUS WITH KETOACIDOSIS WITHOUT COMA Status : Resolved Qualifiers: Diabetes mellitus type: type 2 Diabetes mellitus complication detail: without coma Qualified Code(s): E11.10 - Type 2 diabetes mellitus with ketoacidosis without coma (4) Abdominal pain Code(s): R10.9 - UNSPECIFIED ABDOMINAL PAIN Status: Resolved Qualifiers: Abdominal location: epigastric Qualified Code(s): R10.13 - Epigastric pain Comment: sec to pancreatitis (5) Anemia Code(s): D64.9 - ANEMIA, UNSPECIFIED Status: Acute Qualifiers: Anemia type: unspecified type Qualified Code(s): D64.9 - Anemia, unspecified (6) Nausea & vomiting Code(s): R11.2 - NAUSEA WITH VOMITING, UNSPECIFIED Status: Resolved (7) HTN (hypertension) Code(s): I10 - ESSENTIAL (PRIMARY) HYPERTENSION Status: Chronic Qualifiers: Hypertension type: essential hypertension Qualified Code(s): I10 - Essential (primary) hypertension (8) Dyslipidemia Code(s): E78.5 - HYPERLIPIDEMIA, UNSPECIFIED Status: Chronic (9) DM type 2 (diabetes mellitus, type 2) Status: Chronic Qualifiers: Diabetes mellitus senior care insulin use: without senior care use Diabetes mellitus complication status: with unspecified complications Qualified Code(s) : E11.8 - Type 2 diabetes mellitus with unspecified complications (10) Gastritis Code(s): K29.70 - GASTRITIS, UNSPECIFIED, WITHOUT BLEEDING Status: Acute Qualifiers: Gastritis type: other gastritis Chronicity: acute Gastritis bleeding: without bleeding Qualified Code(s): K29.00 - Acute gastritis without bleeding Comment: H.pylori +ve - Plan to f/u closely with -: patient information will be given about psuedocyst/pancreatitis -: dc pt home -: she prefers to take oral antidm agents than lantus * .
[2019-01-12] MEDS: HumaLOG 300 UNITS/3 ML VIAL SC PRN (12:56)
--- NOTE | 2019-01-13 13:14 | DIS ---
DATE OF ADMISSION: 01/05/2019 DATE OF DISCHARGE: 01/12/2019 DISCHARGE DISPOSITION: To home. PRIMARY DISCHARGE DIAGNOSES: Diabetic ketoacidosis, resolved; severe metabolic acidosis secondary to acute pancreatitis; abdominal pain secondary to acute pancreatitis, resolved; intractable nausea and vomiting resolved. SECONDARY DISCHARGE DIAGNOSES: Chronic anemia, diabetes mellitus type 2, acute gastritis with Helicobacter pylori positive infection, multiple pseudocyst stable. PROCEDURES DONE DURING HOSPITALIZATION: The patient had abdominopelvic CAT scan done on the day of admission, which showed findings of inflammatory fat stranding and free fluid in the region of the horizontal portion of duodenum/pancreatic head extending into the right lower quadrant. These were suspicious for either duodenitis/peptic ulcer disease/acute pancreatitis. Abdominal ultrasound of the right upper quadrant done showed no acute abnormality. CT of the abdomen, pancreatic protocol done showed multiloculated appearing fluid collection with thin enhancing duran seen adjacent to the inferior aspect of the pancreas and duodenum, which extends laterally and inferiorly and into the paracolic gutter. The fluid collection inferior to the pancreas measured 7.5 cm x 6.2 x 4.6 cm. These are all suspicious for pseudocyst. Upper endoscopy done on 01/09/[address] Stephen Berrios showed moderately severe diffuse mucosal erythema seen in the stomach consistent with moderate gastritis. Gastric biopsy, histopathology confirmed H pylori chronic active gastritis. Blood cultures x2, no growth. Urine for Campylobacter, C diff and Shiga toxins were negative. Had a white count of 18 on the day of admission with discharge numbers of 7.6, H and H are 9 and 28, platelet count 307. Serum bicarb on the day of discharge is 24, was less than 8 on the day of admission. Lipase was 60. AST 7, ALT less than 7, total bilirubin 0.2, alkaline phosphatase 98. CRP was 45. Albumin was 3.5, serum glucose was 352 on the day of admission. Beta-hydroxybutyrate was 6.45 on admission. INPATIENT CONSULT: Dr. Camarillo/Dr. Stephen Berrios for Gastroenterology. DISCHARGE MEDICATION: 1. Protonix 40 mg p.o. twice daily. 2. Metformin 1000 mg p.o. twice daily. 3. Clarithromycin 500 mg p.o. twice daily for 14 days. 4. Amoxicillin 1000 mg twice daily for 14 days. 5. Ferrous sulfate 325 mg p.o. daily. 6. Glimepiride 2 mg p.o. q.a.m. ALLERGIES: NO KNOWN DRUG ALLERGIES. DISCHARGE PLAN: The patient to follow up with Dr. Camarillo in 2 to 4 weeks and primary care physician in 1 week. BRIEF COURSE DURING HOSPITALIZATION: The patient initially came to ER with complaints of severe abdominal pain in the epigastric area. She also had intractable nausea, vomiting, and severe dehydration. The patient was initially admitted to [facility] for DKA with severe metabolic acidosis. She was noncompliant with her diabetic medications for the last 4 months or so. Her initial CT abdomen was suspicious for either duodenitis versus acute pancreatitis. She was kept n.p.o. and was slowly started on clear liquid diet. The patient continued to have metabolic acidosis, although her serum sugars returned to baseline. In view of this, a repeat pancreatic protocol CAT scan was obtained. She was found to have had multiple pseudocyst collections. She has had upper endoscopy done, which revealed moderate to severe gastritis, which was positive for H. pylori on the histopathology. She was initiated on amoxicillin, clarithromycin, and Protonix combination. The patient's bicarb is back to normal at present. She is hemodynamically stable, tolerating solid food and ambulating prior to discharge. She was advised to follow up with Dr. Camarillo in 4 weeks. She was also advised to come to the emergency room if she were to develop fever, recurrent abdominal pain, or any untoward event to rule out abscess of the collections that she has in her abdomen. Please see a [id number] documentation for the day of discharge on [employer]. Job ID: [id number] [id number]
== END 2019-01-12 13:45 | disposition home or self-care (01) | DRG 637 ==
LOC: ERS 09:07 → IMCU/EMU 13:43 → T4-A 01-07 20:13
PROVIDERS: ADMIT Internal Medicine; ATTEND Internal Medicine
PROC: 0DB78ZX Excision of Stomach, Pylorus, Via Natural or Artificial Opening Endoscopic, Diagnostic (ICD-10-PCS; principal; 2019-01-09)
DX: E11.10 Type 2 diabetes mellitus with ketoacidosis without coma (principal); K85.90 Acute pancreatitis without necrosis or infection, unspecified; E87.2 Acidosis; E87.1 Hypo-osmolality and hyponatremia; Z91.14 Patient's other noncompliance with medication regimen; D64.9 Anemia, unspecified; I10 Essential (primary) hypertension; E78.5 Hyperlipidemia, unspecified; K29.00 Acute gastritis without bleeding; B96.81 Helicobacter pylori [H. pylori] as the cause of diseases classified elsewhere; E11.65 Type 2 diabetes mellitus with hyperglycemia
CPT/HCPCS: 36415; 36416; 74022; 74170; 74177; 76705; 80048; 80053; 81003; 81015; 81025; 82010; 82436; 82805; 83605; 83690; 83735; 83930; 84100; 84133; 84300; 85025; 86140; 87040; 87045; 87046; 87086; 87324; 87449; 87804; 87899; 88305; 88312; 93005; 96365; 96366; 96375; 96376; C9113; J1650; J1815; J1825; J2704; J2765; J3475; J7050; J7070; Q9966

== ENCOUNTER 2022-10-11 02:46 | Inpatient (IN) | payer SELFPAY ==
[2022-10-11 05:45] LABS: Bilirubin Negative (Negative); Blood, Urine 1+ (Negative); Clarity Clear (Clear); Glucose, Urine (Dipstick) Greater than 1000 mg/dL (Negative); Ketone, Urine 150 mg/dL (Negative); Leukocyte 250 Leu/uL (Negative); Nitrite Negative (Negative); Protein, Urine (Dipstick) 50 mg/dL (Neg-Trace); Specific Gravity, Urine 1.023 (1.002-1.036); Squamous Epithelial 0-3 HPF (0-3); Urobilinogen Normal mg/dL (Less than 2); WBC/HPF Greater than 50 HPF (0-3); pH, Urine 5.5 (5.0-9.0)
[2022-10-11 05:46] LABS: BHCG - Serum Negative (NEGATIVE); Pregs Control Background? CLEAR/WHITE (CLR/WHITE); Pregs Control Bar Appear? YES (CONTROL BAR)
[2022-10-11 05:48] LABS: Bacteria/HPF 1+ HPF (None Seen)
[2022-10-11 05:52] LABS: Hemoglobin 11.6 g/dL (12.0-16.0); Mean Corpuscular HGB CONC 31.2 g/dL (32.0-36.0); Mean Corpuscular Hemoglobin 25.2 pg (27.0-31.0); Mean Corpuscular Volume 80.8 fl (78.0-98.0); Mean Platelet Volume 8.4 fL (7.4-10.4); Platelet Count 240 10x3/uL (130-400); RBC Distribution Width 16.3 % (11.5-14.5); Red Blood Cell (RBC) Count 4.59 mill/uL (4.20-5.40); White Blood Cell (WBC) Count 24.8 10x3/uL (4.8-10.8)
[2022-10-11 05:56] LABS: SARS-CoV-2 NAA Rapid Test Not Detected (NotDetected)
[2022-10-11 06:04] LABS: ALT (SGPT) 10 U/L (8-55); AST (SGOT) 13 U/L (5-34); Albumin 3.8 g/dL (3.5-5.0); Alkaline Phosphatase 135 U/L (40-110); Anion Gap 23 mmol/L (10-20); BUN (Urea Nitrogen) 14 mg/dL (7.0-18.7); Bilirubin, Total 0.3 mg/dL (0.2-1.2); Calc. Creatinine Clearance 0 mL/min (70-130); Calcium 9.2 mg/dL (7.8-10.44); Carbon Dioxide 13 mmol/L (22-29); Chloride 96 mmol/L (98-107); Estimated GFR 52; Globulin 4.7 g/dL (2.4-3.5); Lipase 18 U/L (8-78); Potassium 4.1 mmol/L (3.5-5.1); Protein, Total 8.5 g/dL (6.0-8.3); Sodium 128 mmol/L (136-145)
[2022-10-11 06:06] LABS: Band 17 % (5-11); Lymphocytes 2 % (21-51); Monocytes 5 % (0-10); Neutrophil 75 % (42-75); Platelet Morphology Comment Appears Adequate; Reactive Lymphocytes 1 % (0-10)
[2022-10-11 06:09] LABS: Glucose 403 mg/dL (70-105)
[2022-10-11 06:15] LABS: MDiff Complete? YES
[2022-10-11] MEDS ORDERED: INSULIN REGULAR IN 0.9 % NACL 100 UNIT/100 ML BAG ONE (06:17)
[2022-10-11] MEDS ORDERED: cefTRIAXone\\ROCEPHIN 1 GM VIAL ONE (06:17)
[2022-10-11] MEDS ORDERED: HumaLOG 300 UNITS/3 ML VIAL SC PRN (08:42)
[2022-10-11] MEDS ORDERED: Senokot S 8.6-50 MG TAB PO PRN (08:42)
[2022-10-11] MEDS ORDERED: Acetaminophen 500 MG TAB ONE (08:42)
[2022-10-11] MEDS ORDERED: Ondansetron PF 4 MG/2 ML Vial IVP PRN (08:42)
[2022-10-11] MEDS ORDERED: Guaifenesin DM 100-10/5 ML UDCUP PO PRN (08:42)
[2022-10-11] MEDS ORDERED: Insulin Glargine 30 UNITS/0.3 ML VIAL SC SCH (08:42)
[2022-10-11] MEDS ORDERED: Dextrose 5% in Water 1,000 ML IV PRN (08:42)
[2022-10-11] MEDS ORDERED: Dextrose 50% Abboject 50 ML SYRINGE SLOW IVP PRN (08:42)
[2022-10-11] MEDS: Sodium Chloride 0.9% 1,000 ML IV SCH ×2 (09:15→17:08)
[2022-10-11 09:33] LABS: Lactic Acid 1.7 mmol/L (0.5-2.2)
[2022-10-11 12:12] VITALS: BMI 25.9
[2022-10-11] MEDS: HumaLOG 300 UNITS/3 ML VIAL SC PRN ×2 (12:15→17:35)
[2022-10-11] MEDS: Enoxaparin Sodium 40 MG/0.4 ML SYRINGE SC SCH (13:17)
[2022-10-11] MEDS: Cefepime 1 GM in Sodium Chloride 0.9% 100 ML IVPB SCH (13:19)
[2022-10-11] MEDS: Acetaminophen 325 MG TAB PO PRN ×2 (15:24→19:25)
[2022-10-11] MEDS: Insulin Glargine 30 UNITS/0.3 ML VIAL SC SCH (21:39)
[2022-10-11] MEDS: Ibuprofen 200 MG TAB PO PRN (21:43)
[2022-10-12] MEDS: Acetaminophen 325 MG TAB PO PRN ×4 (00:20→17:55)
[2022-10-12] MEDS: Cefepime 1 GM in Sodium Chloride 0.9% 100 ML IVPB SCH ×2 (00:20→13:13)
[2022-10-12] MEDS: Sodium Chloride 0.9% 1,000 ML IV SCH ×4 (00:25→17:55)
[2022-10-12] MEDS: HumaLOG 300 UNITS/3 ML VIAL SC PRN ×3 (05:45→17:57)
[2022-10-12 08:48] LABS: ALT (SGPT) 8 U/L (8-55); AST (SGOT) 10 U/L (5-34); Albumin 2.2 g/dL (3.5-5.0); Alkaline Phosphatase 74 U/L (40-110); Anion Gap 11 mmol/L (10-20); BUN (Urea Nitrogen) 13 mg/dL (7.0-18.7); Bilirubin, Total 0.2 mg/dL (0.2-1.2); Calc. Creatinine Clearance 87 mL/min (70-130); Calcium 6.5 mg/dL (7.8-10.44); Carbon Dioxide 13 mmol/L (22-29); Chloride 113 mmol/L (98-107); Estimated GFR 102; Globulin 2.6 g/dL (2.4-3.5); Glucose 193 mg/dL (70-105); Protein, Total 4.8 g/dL (6.0-8.3); Sodium 134 mmol/L (136-145)
[2022-10-12] MEDS ORDERED: Insulin Glargine 30 UNITS/0.3 ML VIAL SC SCH (08:58)
[2022-10-12] MEDS ORDERED: Calcium Gluconate 4.6 MEQ in Sodium Chloride 0.9% 100 ML IVPB SCH (08:58)
[2022-10-12] MEDS ORDERED: FLU VACC QS2022-23(6MOS UP)/PF 60 MCG/0.5 ML SYRINGE IM ONE (09:00)
[2022-10-12] MEDS: Potassium Chloride 20 MEQ TAB PO SCH ×3 (09:27→20:59)
[2022-10-12] MEDS ORDERED: CALCIUM GLUC 1GM/NS 50ML 1 GM in Premix Bag 1 BAG IVPB SCH (09:30)
[2022-10-12] MEDS: Enoxaparin Sodium 40 MG/0.4 ML SYRINGE SC SCH (09:30)
[2022-10-12] MEDS: Glimepiride 2 MG TAB PO SCH (10:03)
[2022-10-12 10:21] LABS: Hemoglobin 7.8 g/dL (12.0-16.0); Mean Corpuscular HGB CONC 30.4 g/dL (32.0-36.0); Mean Corpuscular Hemoglobin 25.1 pg (27.0-31.0); Mean Corpuscular Volume 82.6 fl (78.0-98.0); Mean Platelet Volume 8.2 fL (7.4-10.4); Platelet Count 152 10x3/uL (130-400); RBC Distribution Width 16.2 % (11.5-14.5); Red Blood Cell (RBC) Count 3.12 mill/uL (4.20-5.40); White Blood Cell (WBC) Count 18.7 10x3/uL (4.8-10.8)
[2022-10-12 11:14] LABS: Band 6 % (5-11); Hypochromia SLIGHT = 6-15 cells (100X) (0-5/hpf); Lymphocytes 5 % (21-51); MDiff Complete? YES; Monocytes 3 % (0-10); Neutrophil 86 % (42-75); Platelet Morphology Comment Appears Adequate
[2022-10-12] MEDS: Ibuprofen 200 MG TAB PO PRN ×2 (13:21→20:50)
[2022-10-12] MEDS: metFORMIN 500 MG TAB PO SCH (17:54)
[2022-10-12] MEDS: Insulin Glargine 30 UNITS/0.3 ML VIAL SC SCH (20:51)
[2022-10-13] MEDS: Cefepime 1 GM in Sodium Chloride 0.9% 100 ML IVPB SCH (00:13)
[2022-10-13] MEDS: Acetaminophen 325 MG TAB PO PRN (00:13)
[2022-10-13] MEDS: Sodium Chloride 0.9% 1,000 ML IV SCH ×2 (01:23→07:15)
[2022-10-13] MEDS: Ibuprofen 200 MG TAB PO PRN ×3 (05:27→20:18)
[2022-10-13 07:15] LABS: Iron Binding Capacity, Total 220 mcg/dL (265-497)
[2022-10-13 07:35] LABS: Mean Corpuscular HGB CONC 31.6 g/dL (32.0-36.0); Mean Corpuscular Hemoglobin 25.7 pg (27.0-31.0); Mean Corpuscular Volume 81.4 fl (78.0-98.0); Mean Platelet Volume 8.4 fL (7.4-10.4); Platelet Count 170 10x3/uL (130-400); RBC Distribution Width 16.4 % (11.5-14.5); Red Blood Cell (RBC) Count 3.09 mill/uL (4.20-5.40); White Blood Cell (WBC) Count 12.8 10x3/uL (4.8-10.8)
[2022-10-13 08:22] LABS: Band 22 % (5-11); Lymphocytes 8 % (21-51); MDiff Complete? YES; Monocytes 1 % (0-10); Neutrophil 69 % (42-75); Platelet Morphology Comment Appears Adequate; Polychromasia SLIGHT = 2-3 cells (100X) (0-2/hpf)
[2022-10-13 08:24] LABS: Iron Less than 8 ug/dL (50-170)
[2022-10-13 08:43] LABS: ALT (SGPT) 12 U/L (8-55); AST (SGOT) 28 U/L (5-34); Albumin 2.1 g/dL (3.5-5.0); Alkaline Phosphatase 106 U/L (40-110); Anion Gap 8 mmol/L (10-20); BUN (Urea Nitrogen) 10 mg/dL (7.0-18.7); Bilirubin, Total 0.2 mg/dL (0.2-1.2); Calc. Creatinine Clearance 95 mL/min (70-130); Carbon Dioxide 15 mmol/L (22-29); Chloride 118 mmol/L (98-107); Estimated GFR 107; Globulin 2.9 g/dL (2.4-3.5); Glucose 103 mg/dL (70-105); Lipase 21 U/L (8-78); Magnesium 1.8 mg/dL (1.6-2.6); Potassium 4.2 mmol/L (3.5-5.1); Sodium 137 mmol/L (136-145)
[2022-10-13 08:46] LABS: Calcium 6.7 mg/dL (7.8-10.44)
[2022-10-13] MEDS: Glimepiride 2 MG TAB PO SCH (09:38)
[2022-10-13] MEDS: Enoxaparin Sodium 40 MG/0.4 ML SYRINGE SC SCH (09:40)
[2022-10-13] MEDS: metFORMIN 500 MG TAB PO SCH ×2 (09:40→16:39)
[2022-10-13] MEDS: HumaLOG 300 UNITS/3 ML VIAL SC PRN ×2 (12:43→16:39)
[2022-10-13] MEDS: Ferrous Sulfate 325 MG TAB PO SCH (16:39)
[2022-10-13] MEDS: Ciprofloxacin 500 MG TAB PO SCH (20:15)
[2022-10-14] MEDS: Ciprofloxacin 500 MG TAB PO SCH (05:20)
[2022-10-14 06:09] LABS: #Basophils 0.1 thou/uL (0.0-0.2); #Eosinphils 0.1 thou/uL (0.0-0.7); #Lymphocytes 1.6 thou/uL (1.20-3.40); #Monocytes 0.7 thou/uL (0.11-0.59); #Neutrophils 8.3 thou/uL (1.40-6.50); %Basophils 0.5 % (0.0-1.0); %Eosinophils 0.5 % (0.0-10.0); %Lymphocytes 14.6 % (21.0-51.0); %Monocytes 6.4 % (0.0-10.0); Hemoglobin 8.5 g/dL (12.0-16.0); Mean Corpuscular HGB CONC 32.4 g/dL (32.0-36.0); Mean Corpuscular Hemoglobin 26.2 pg (27.0-31.0); Mean Corpuscular Volume 81.1 fl (78.0-98.0); Mean Platelet Volume 8.1 fL (7.4-10.4); Platelet Count 203 10x3/uL (130-400); RBC Distribution Width 16.7 % (11.5-14.5); Red Blood Cell (RBC) Count 3.23 mill/uL (4.20-5.40); White Blood Cell (WBC) Count 10.6 10x3/uL (4.8-10.8)
[2022-10-14 06:32] LABS: ALT (SGPT) 14 U/L (8-55); AST (SGOT) 20 U/L (5-34); Albumin 2.2 g/dL (3.5-5.0); Alkaline Phosphatase 166 U/L (40-110); Anion Gap 11 mmol/L (10-20); BUN (Urea Nitrogen) 9 mg/dL (7.0-18.7); Bilirubin, Total 0.2 mg/dL (0.2-1.2); Calc. Creatinine Clearance 83 mL/min (70-130); Calcium 7.4 mg/dL (7.8-10.44); Carbon Dioxide 15 mmol/L (22-29); Chloride 111 mmol/L (98-107); Estimated GFR 96; Globulin 3.2 g/dL (2.4-3.5); Glucose 282 mg/dL (70-105); Potassium 3.8 mmol/L (3.5-5.1); Protein, Total 5.4 g/dL (6.0-8.3); Sodium 133 mmol/L (136-145)
[2022-10-14] MEDS ORDERED: Glimepiride 4 MG TAB PO SCH (08:00)
[2022-10-14] MEDS: Enoxaparin Sodium 40 MG/0.4 ML SYRINGE SC SCH (08:23)
[2022-10-14] MEDS: Ferrous Sulfate 325 MG TAB PO SCH (08:23)
[2022-10-14] MEDS: metFORMIN 500 MG TAB PO SCH (08:23)
[2022-10-14] MEDS ORDERED: [UNRECOGNIZED DRUG - OTHER] PO SCH (09:00)
[2022-10-14] MEDS ORDERED: ETHINYL ESTRADIOL PO SCH (09:00)
[2022-10-14] MEDS ORDERED: DESOGESTREL PO SCH (09:00)
[2022-10-14 11:50] VITALS: BP 107/65; TEMP 98.9
== END 2022-10-14 11:37 | disposition home or self-care (01) | DRG 871 ==
LOC: ERS 02:46 → ERHOLD 06:46 → SURG A 10:24
PROVIDERS: ADMIT Student in an Organized Health Care Education/Training Program; ATTEND Internal Medicine
DX: A41.51 Sepsis due to Escherichia coli [E. coli] (principal); E11.10 Type 2 diabetes mellitus with ketoacidosis without coma; N30.00 Acute cystitis without hematuria; E86.0 Dehydration; D50.9 Iron deficiency anemia, unspecified; Z20.822 Contact with and (suspected) exposure to COVID-19; Z79.84 Long term (current) use of oral hypoglycemic drugs; Z83.79 Family history of other diseases of the digestive system; Z79.899 Other long term (current) drug therapy
CPT/HCPCS: 36415; 36416; 74176; 80053; 81003; 81015; 82010; 82728; 83540; 83550; 83605; 83690; 83735; 84703; 85025; 87040; 87077; 87086; 87149; 87186; 93005; 96361; 96365; 96366; J0610; J0692; J0696; J1650; J1815; J2405; J3490; J7050